=== PATIENT | female | born 1960 | race American Indian/Alaskan Native ===

== ENCOUNTER 2017-12-24 07:43 | Day surgery (SDC) | payer BC ==
[2017-12-24] MEDS ORDERED: Lactated Ringer's 1,000 ML IV ONE (09:00)
[2017-12-24] MEDS ORDERED: Propofol 10 mg/ml Inj (20 ML) ONE (09:00)
--- NOTE | 2017-12-24 09:00 | CP.SDSHP ---
Same Day Surgery H & P - History Proposed Procedure: screening colonoscopy Pre-Op Diagnosis: screening for colon cancer - Previous Medical/Surgical History Cardiac: Hypertension Pulmonary: Other (RUBÉN) Endocrine/Metabolic: Diabetes, Obesity Previous Surgical History: x 1 - Allergies Allergies: Allergies No Known Allergies Allergy (Verified 12/24/17 08:16) - Physical Exam General Appearance: Morbidly obese Vital Signs: Vital Signs 12/24/17 08:05 Temperature 97.9 F Pulse Rate 80 Respiratory 20 Rate Blood Pressure 160/91 H O2 Sat by Pulse 98 Oximetry Mental Status: Alert & Oriented x3 Neuro: WNL Heart: WNL Lungs: WNL GI: WNL - Impression Impression: screening for colon cancer Pt. Evaluated Today:Candidate for Anesthesia & Procedure: Yes - Date & Time Date: 12/24/17 Time: 09:00 Short Stay Discharge - Short Stay Discharge Admitting Diagnosis/Reason for Visit: MORBID OBESITY, ENCOUNTER FOR SCREENING, TYPE2 MISSY Disposition: HOME/ ROUTINE
[2017-12-24 09:56] VITALS: TEMP 97; O2SAT 100
[2017-12-24 10:02] VITALS: RESP 18
[2017-12-24 12:43] VITALS: BP 120/84; PULSE 76
== END 2017-12-24 11:05 | disposition home or self-care (01) ==
LOC: C.ENDO 07:43
PROVIDERS: ATTEND Internal Medicine Gastroenterology
DX: Z12.11 Encounter for screening for malignant neoplasm of colon (principal); E66.01 Morbid (severe) obesity due to excess calories; E11.65 Type 2 diabetes mellitus with hyperglycemia; E11.9 Type 2 diabetes mellitus without complications; E66.9 Obesity, unspecified; G47.33 Obstructive sleep apnea (adult) (pediatric); I10 Essential (primary) hypertension; K57.30 Diverticulosis of large intestine without perforation or abscess without bleeding; K64.1 Second degree hemorrhoids; Z68.43 Body mass index [BMI] 50.0-59.9, adult
CPT/HCPCS: 45378; 82948; J2001; J2704; J7120

== ENCOUNTER 2018-01-14 18:00 | Inpatient (IN) | payer BC ==
[2018-01-14 19:36] LABS: BASO # 0.1 K/uL (0.0-0.2); BASO % 1.1 % (0.0-2.0); EOS # 0.2 K/uL (0.0-0.7); EOS % 2.3 % (0.0-4.0); HEMOGLOBIN 14.1 g/dL (11.0-16.0); LYMPH # 2.2 K/uL (1.0-4.3); LYMPH % 23.3 % (20.0-40.0); MEAN CELL VOLUME 81.5 fL (81.0-99.0); MEAN CORPUSCULAR HEMOGLOBIN 27.3 pg (27.0-31.0); MEAN CORPUSCULAR HGB CONC 33.5 g/dL (33.0-37.0); MEAN PLATELET VOLUME 11.2 fL (7.2-11.7); MONO # 0.9 K/uL (0.0-0.8); MONO % 9.4 % (0.0-10.0); NEUT # 6.1 K/uL (1.8-7.0); NEUT % 63.9 % (50.0-75.0); NRBC % 0.3 % (0.0-2.0); RBC 5.18 Mil/uL (3.80-5.20); RED CELL DISTRIBUTION WIDTH 16.4 % (11.5-14.5); WHITE BLOOD COUNT 9.6 K/uL (4.8-10.8)
[2018-01-14 19:54] LABS: ALB/GLOB RATIO 0.9 (1.0-2.1); ALBUMIN 3.9 g/dL (3.5-5.0); GFR AFRICAN-AMERICAN > 60; GFR NON-AFRICAN AMERICAN > 60
[2018-01-14 19:57] LABS: ALT/SGPT 7 U/L (9-52); AST/SGOT 21 U/L (14-36); BLOOD UREA NITROGEN 11 mg/dL (7-17)
[2018-01-14 20:06] LABS: TROPONIN I 0.022 ng/mL (0.00-0.120)
--- NOTE | 2018-01-14 20:10 | C.PDOC ---
History Of Present Illness 57yo female, with history of hypertension, diabetes, sleep apnea (non-complaint with CPAP), presents to ED for evaluation of worsening dyspnea and chest pain at night while laying, for the past 2-3 weeks. Patient was seen and evaluated by her financial aids officer Dr. Pendleton, who advised her to come to the ER for further evaluation. She denies any fever, chills, and offers no other medical complaints. Time Seen by Provider: 01/14/18 19:20 Chief Complaint (Nursing): Shortness Of Breath History Per: Patient History/Exam Limitations: no limitations Onset/Duration Of Symptoms: Days, Persistent Current Symptoms Are (Timing): Still Present Past Medical History Reviewed: Historical Data, Nursing Documentation, Vital Signs Vital Signs: Last Vital Signs Temp 99 F 01/14/18 18:09 Pulse 90 01/14/18 23:48 Resp 20 01/14/18 23:48 BP 174/95 H 01/14/18 23:53 Pulse Ox 96 01/14/18 23:48 - Medical History PMH: Diabetes, HTN Denies: Chronic Kidney Disease Surgical History: No Surg Hx Family History: States: Unknown Family Hx - Social History Hx Tobacco Use: No Hx Alcohol Use: No Hx Substance Use: No - Immunization History Hx Tetanus Toxoid Vaccination: No Hx Influenza Vaccination: Yes Hx Pneumococcal Vaccination: No Review Of Systems Except As Marked, All Systems Reviewed And Found Negative. Constitutional: Negative for: Fever, Chills, Weakness, Malaise Eyes: Negative for: Pain, Vision Change, Eyelid Inflammation ENT: Negative for: Ear Pain, Ear Discharge, Nose Congestion, Mouth Pain Cardiovascular: Positive for: Chest Pain (worse at night), Orthopnea, Paroxysmal Noc. Dyspnea. Negative for: Palpitations, Edema, Light Headedness Respiratory: Positive for: Shortness of Breath (worse at night). Negative for: Hemoptysis, SOB with Excertion, Wheezing Gastrointestinal: Negative for: Nausea, Vomiting, Abdominal Pain, Constipation, Melena Genitourinary: Negative for: Dysuria, Frequency, Hematuria, Vaginal Discharge Musculoskeletal: Negative for: Neck Pain, Shoulder Pain, Back Pain, Hand Pain Skin: Negative for: Rash Neurological: Negative for: Weakness, Numbness Psych: Negative for: Anxiety, Depression, Psychosis, Suicidal ideation Physical Exam - Physical Exam Appears: Non-toxic, No Acute Distress Skin: Normal Color, Warm, Dry Head: Atraumatic, Normacephalic Eye(s): bilateral: Normal Inspection, PERRL Ear(s): Bilateral: Normal Nose: Normal, No Epistaxis Oral Mucosa: Moist Tongue: Normal Appearing Lips: Normal Appearing Teeth: Normal Dentition Gingiva: Normal Appearing Neck: Normal ROM, Supple Chest: Symmetrical, No Tenderness Cardiovascular: Rhythm Regular Respiratory: Normal Breath Sounds Gastrointestinal/Abdominal: Normal Exam, Soft, No Tenderness Back: No Normal Inspection, No CVA Tenderness, No Decreased ROM, No Muscle Spasm Extremity: Normal ROM Extremity: Bilateral: Atraumatic Neurological/Psych: Oriented x3, Normal Speech, Normal Cognition, Normal Motor, Normal Sensation Gait: Steady ED Course And Treatment - Laboratory Results Result Diagrams: 01/14/18 19:33 01/14/18 19:33 Urine POC: Negative ECG: Interpreted By Me, Viewed By Me ECG Rhythm: Sinus Rhythm Interpretation Of ECG: RI: 176. QRS: 102. QT: 378. ATC: 454 Rate From EC O2 Sat by Pulse Oximetry: 96 (RA) Pulse Ox Interpretation: Normal Medical Decision Making Medical Decision Making: Impression: Worsening dyspnea, chest pain Plan: -- Labs -- EKG -- CXR -- Continuous cardiac monitoring Time: 2099 Labs reviewed, Troponin and BNP within normal limits. CXR with no acute findings. Patient given ASA 325 mg PO. Time: [address] Buckner, hospitalist fishery division chief who declined case and recommended medicine fishery division chief to be contacted,. Case discussed with Dr. Brittanie Parr, medicine fishery division chief, who accepts patient for admission. Dr. Pendleton placed on cardiology consult. Time: 2138 Dr. Pendleton called back, reiterated he requested hospitalist for admission, hospitalist informed and now accepted the case. Disposition - Disposition Disposition: HOSPITALIZED Disposition Time: 00:32 Condition: FAIR - Clinical Impression Clinical Impression: Respiratory distress, Shortness of breath, Hypertension, Diabetes - Scribe Statement The provider has reviewed the documentation as recorded by the Scribe (Theresa Mei) Provider Attestation: All medical record entries made by the Scribe were at my direction and personally dictated by me. I have reviewed the chart and agree that the record accurately reflects my personal performance of the history, physical exam, medical decision making, and the department course for this patient. I have also personally directed, reviewed, and agree with the discharge instructions and disposition.
--- NOTE | 2018-01-14 22:21 | CP.PCM.HP ---
Addendum entered and electronically signed by Albert Keating, DO 01/15/18 02:13: Was told by veterinarian epidemiologist that the contrast did not adequately highlight the chest arteries most likely 2/2 to body habitus Evaporative Cooler Installer is recommending that she receive more contrast than is typically given 2/2 to BMI of 58 will pass on to day team to re-do study tomorrow (01/15) Original Note: <Albert Keating - Last Filed: 01/14/18 22:28> History of Present Illness - History of Present Illness History of Present Illness: CC: SOB and chest pain at Dr. Pendleton Office PMD: Francisco J Parr Pulm: Daron Cardio: Helder FULL CODE This patient is a 57yo F w/ a PMhx of RUBÉN, HTN, DM controlled not on insulin, HLD, super obesity, who is coming to the hospital for progressive shortness of breath, leg swelling, decreased exercise tolerance, and chest pain that started today at doctor pendleton office. She states the chest pain is intermittent, has left already, and was associated with shortness of breath which made her nervous. She is non compliant with CPAP at night; has had it for a year and has only used it twice. She is a former cigarette smoker, and has stopped for many years now. She denies illicit drug use. She sleeps with 1-2 pillows, rolled up under her. states that he gets woken up with her breathing and that she will stop breathing in her sleep and often wakes up to catch her breath. As per Dr. Pendleton; patient has recent cath which is normal without blockages; she has mitral regurgitation which could be a component of her SOB. He also wanted vascular studies of b/l lower extremities, as well as D-Dimer and if D Dimer is positive to get CTA chest. 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, walks without assistance but can only walk 1/2 block before getting short of breath, former smoker not smoked for 30 years, social EtOH, no illicit drugs Present on Admission - Present on Admission Any Indicators Present on Admission: No History of DVT/PE: No History of Uncontrolled Diabetes: Yes Urinary Catheter: No Decubitus Ulcer Present: No Past Patient History - Past Medical History & Family History Past Medical History?: Yes - Past Social History Smoking Status: Never Smoked - CARDIAC Hx Hypertension: Yes - PULMONARY Hx Respiratory Disorders: No - NEUROLOGICAL Hx Neurological Disorder: No - HEENT Hx HEENT Problems: Yes Other/Comment: WEARS GLASSES - RENAL Hx Chronic Kidney Disease: No - ENDOCRINE/METABOLIC Hx Endocrine Disorders: Yes Hx Diabetes Mellitus Type 2: Yes - HEMATOLOGICAL/ONCOLOGICAL Hx Blood Disorders: No - INTEGUMENTARY Hx Dermatological Problems: No - MUSCULOSKELETAL/RHEUMATOLOGICAL Hx Musculoskeletal Disorders: Yes Hx Osteoarthritis: Yes - GASTROINTESTINAL Hx Gastrointestinal Disorders: No - GENITOURINARY/GYNECOLOGICAL Hx Genitourinary Disorders: No - PSYCHIATRIC Hx Substance Use: No - SURGICAL HISTORY Hx Surgeries: Yes Hx Section: Yes (X1) - ANESTHESIA Hx Anesthesia: No Hx Anesthesia Reactions: No Meds Allergies/Adverse Reactions: Allergies Allergy/AdvReac Type Severity Reaction Status Date / Time shellfish derived Allergy Severe ANAPHYLAXIS Verified 01/14/18 18:15 Physical Exam - Constitutional Appears: Well, Non-toxic Additional comments: diaphoretic nervous - Eye Exam Eye Exam: EOMI, Normal appearance, PERRL. absent: Scleral icterus Pupil Exam: PERRL - ENT Exam ENT Exam: Mucous Membranes Moist - Respiratory Exam Respiratory Exam: Clear to Auscultation Bilateral, NORMAL BREATHING PATTERN. absent: Rales, Rhonchi, Wheezes - Cardiovascular Exam Cardiovascular Exam: REGULAR RHYTHM, +S1, +S2 - GI/Abdominal Exam GI & Abdominal Exam: Normal Bowel Sounds, Soft. absent: Tenderness (extremely obese abdomen very thick neck) - Extremities Exam Extremities exam: Positive for: normal inspection (large legs). Negative for: calf tenderness, pedal edema, tenderness - Back Exam Back exam: NORMAL INSPECTION. absent: CVA tenderness (L), CVA tenderness (R) - Neurological Exam Neurological exam: Alert, CN II-XII Intact, Oriented x3 - Psychiatric Exam Psychiatric exam: Anxious, Normal Affect - Skin Skin Exam: Warm Results - Vital Signs Recent Vital Signs: Last Vital Signs Temp 99 F 01/14/18 18:09 Pulse 82 01/14/18 21:26 Resp 20 01/14/18 21:26 BP 102/77 01/14/18 21:26 Pulse Ox 96 01/14/18 21:39 - Labs Result Diagrams: 01/14/18 19:33 01/14/18 19:33 Labs: Laboratory Results - last 24 hr 01/14/18 01/14/18 01/14/18 18:13 19:33 19:33 WBC 9.6 RBC 5.18 Hgb 14.1 Hct 42.2 MCV 81.5 MCH 27.3 MCHC 33.5 RDW 16.4 H Plt Count 177 MPV 11.2 Neut % (Auto) 63.9 Lymph % (Auto) 23.3 Atlantic % (Auto) 9.4 Eos % (Auto) 2.3 Baso % (Auto) 1.1 Neut # (Auto) 6.1 Lymph # (Auto) 2.2 Atlantic # (Auto) 0.9 H Eos # (Auto) 0.2 Baso # (Auto) 0.1 Differential Comment Sodium 143 Potassium 4.4 Chloride 104 Carbon Dioxide 30 Anion Gap 13 BUN 11 Creatinine 0.6 L Est GFR ( Amer) > 60 Est GFR (Non-Af Amer) > 60 POC Glucose (mg/dL) 160 H Random Glucose 170 H Calcium 9.0 Total Bilirubin 0.7 AST 21 ALT 7 L D Alkaline Phosphatase 83 Troponin I NT-Pro-B Natriuret Pep Total Protein 8.1 Albumin 3.9 Globulin 4.2 H Albumin/Globulin Ratio 0.9 L 01/14/18 19:33 WBC RBC Hgb Hct MCV MCH MCHC RDW Plt Count MPV Neut % (Auto) Lymph % (Auto) Atlantic % (Auto) Eos % (Auto) Baso % (Auto) Neut # (Auto) Lymph # (Auto) Atlantic # (Auto) Eos # (Auto) Baso # (Auto) Differential Comment Sodium Potassium Chloride Carbon Dioxide Anion Gap BUN Creatinine Est GFR ( Amer) Est GFR (Non-Af Amer) POC Glucose (mg/dL) Random Glucose Calcium Total Bilirubin AST ALT Alkaline Phosphatase Troponin I 0.0220 NT-Pro-B Natriuret Pep 235 Total Protein Albumin Globulin Albumin/Globulin Ratio Assessment & Plan - Assessment and Plan (Free Text) Assessment: 57yo F sent from cardio clinic for evaluation of chest pain and shortness of breath Chest Pain -GLYNN Q6H; initial negative -BNP WNL -Aspirin, Statin ordered -Cardiology: Dr Pendleton; appreciate recs -echo ordered, f/u recs -telemetry SOB -likely 2/2 to super obesity -CPAP at night and encouraged -weight loss encouraged -Dr. Neri; pulmonology for Dr. pendleton; thank you for your help -as per Dr. Pendleton, if D Dimer elevated will get CTA PE Protocol -f/u b/l lower extremity US Hx of HTn -c/w ramipril -telemetry Hx of DM -c/w home meds, metformin, januvia, glimiperide -hypoglycemia protocol Hx of HLD -Statin high dose 40mg HS Hx of RUBÉN -CPAP encouraged Super Obesity -counseling; diet and exercise encouraged Prophylaxis -GI prophylaxis not indicated -Lovenox 40mg SC Discussed and seen with Dr. Buckner Discussed with Dr. Helder Keating PGY2 Decision To Admit - Pt Status Changed To: Hospital Disposition Of: Observation - . Bed Request Type: Telemetry Admitting Physician: Jonas Buckner <Jonas Buckner - Last Filed: 01/15/18 07:53> Results - Vital Signs Recent Vital Signs: Last Vital Signs Temp 98 F 01/15/18 05:12 Pulse 82 01/15/18 05:00 Resp 17 01/15/18 05:00 BP 146/69 01/15/18 04:35 Pulse Ox 98 01/15/18 05:00 - Labs Result Diagrams: 01/15/18 02:57 01/15/18 02:57 Labs: Laboratory Results - last 24 hr 01/14/18 01/14/18 01/14/18 18:13 19:33 19:33 WBC 9.6 RBC 5.18 Hgb 14.1 Hct 42.2 MCV 81.5 MCH 27.3 MCHC 33.5 RDW 16.4 H Plt Count 177 MPV 11.2 Neut % (Auto) 63.9 Lymph % (Auto) 23.3 Atlantic % (Auto) 9.4 Eos % (Auto) 2.3 Baso % (Auto) 1.1 Neut # (Auto) 6.1 Lymph # (Auto) 2.2 Atlantic # (Auto) 0.9 H Eos # (Auto) 0.2 Baso # (Auto) 0.1 Differential Comment D-Dimer, Quantitative Sodium 143 Potassium 4.4 Chloride 104 Carbon Dioxide 30 Anion Gap 13 BUN 11 Creatinine 0.6 L Est GFR ( Amer) > 60 Est GFR (Non-Af Amer) > 60 POC Glucose (mg/dL) 160 H Random Glucose 170 H Hemoglobin A1c Calcium 9.0 Total Bilirubin 0.7 AST 21 ALT 7 L D Alkaline Phosphatase 83 Total Creatine Kinase CK-MB (Mass) Troponin I NT-Pro-B Natriuret Pep Total Protein 8.1 Albumin 3.9 Globulin 4.2 H Albumin/Globulin Ratio 0.9 L Triglycerides Cholesterol LDL Cholesterol Direct HDL Cholesterol Free T4 TSH 3rd Generation 01/14/18 01/14/18 01/14/18 19:33 22:30 22:58 WBC RBC Hgb Hct MCV MCH MCHC RDW Plt Count MPV Neut % (Auto) Lymph % (Auto) Atlantic % (Auto) Eos % (Auto) Baso % (Auto) Neut # (Auto) Lymph # (Auto) Atlantic # (Auto) Eos # (Auto) Baso # (Auto) Differential Comment D-Dimer, Quantitative 348 H Sodium Potassium Chloride Carbon Dioxide Anion Gap BUN Creatinine Est GFR ( Amer) Est GFR (Non-Af Amer) POC Glucose (mg/dL) 214 H Random Glucose Hemoglobin A1c Calcium Total Bilirubin AST ALT Alkaline Phosphatase Total Creatine Kinase CK-MB (Mass) Troponin I 0.0220 NT-Pro-B Natriuret Pep 235 Total Protein Albumin Globulin Albumin/Globulin Ratio Triglycerides Cholesterol LDL Cholesterol Direct HDL Cholesterol Free T4 TSH 3rd Generation 01/15/18 01/15/18 01/15/18 02:57 02:57 02:57 WBC RBC Hgb Hct MCV MCH MCHC RDW Plt Count MPV Neut % (Auto) Lymph % (Auto) Atlantic % (Auto) Eos % (Auto) Baso % (Auto) Neut # (Auto) Lymph # (Auto) Atlantic # (Auto) Eos # (Auto) Baso # (Auto) Differential Comment D-Dimer, Quantitative Sodium 142 Potassium 3.9 Chloride 105 Carbon Dioxide 28 Anion Gap 13 BUN 11 Creatinine 0.6 L Est GFR ( Amer) > 60 Est GFR (Non-Af Amer) > 60 POC Glucose (mg/dL) Random Glucose 178 H Hemoglobin A1c 7.8 H Calcium 8.8 Total Bilirubin 0.7 AST 15 ALT 15 Alkaline Phosphatase 69 Total Creatine Kinase CK-MB (Mass) Troponin I NT-Pro-B Natriuret Pep Total Protein 7.1 Albumin 3.5 Globulin 3.6 Albumin/Globulin Ratio 1.0 Triglycerides 82 D Cholesterol 129 LDL Cholesterol Direct 67 HDL Cholesterol 37 Free T4 1.37 TSH 3rd Generation 0.97 01/15/18 01/15/18 01/15/18 02:57 02:57 07:24 WBC 7.8 RBC 4.80 Hgb 13.1 Hct 38.7 MCV 80.8 L MCH 27.3 MCHC 33.8 RDW 15.9 H Plt Count 134 MPV 10.7 Neut % (Auto) 63.4 Lymph % (Auto) 22.7 Atlantic % (Auto) 9.8 Eos % (Auto) 3.0 Baso % (Auto) 1.1 Neut # (Auto) 5.0 Lymph # (Auto) 1.8 Atlantic # (Auto) 0.8 Eos # (Auto) 0.2 Baso # (Auto) 0.1 Differential Comment D-Dimer, Quantitative Sodium Potassium Chloride Carbon Dioxide Anion Gap BUN Creatinine Est GFR ( Amer) Est GFR (Non-Af Amer) POC Glucose (mg/dL) 175 H Random Glucose Hemoglobin A1c Calcium Total Bilirubin AST ALT Alkaline Phosphatase Total Creatine Kinase 37 CK-MB (Mass) 1.36 Troponin I 0.0200 NT-Pro-B Natriuret Pep Total Protein Albumin Globulin Albumin/Globulin Ratio Triglycerides Cholesterol LDL Cholesterol Direct HDL Cholesterol Free T4 TSH 3rd Generation Attending/Attestation - Attestation I have personally seen and examined this patient.: Yes I have fully participated in the care of the patient.: Yes I have reviewed all pertinent clinical information: Yes Notes (Text): Assessment Chronic sob some worsening in last 2 months, negative cath as per the cardiology , Non compliance with prior diagnosis of obstructive sleep apnea, with positive symptoms Morbidly obese H/o htn, dm Plan Since elevated ddimer, will do CTA, pulm consult, cardiology consult, hold metformin due to iv contrast.
[2018-01-14] MEDS ORDERED: Dextrose 50% SYRINGE Inj (50 ml) IV PRN (22:38)
[2018-01-14] MEDS ORDERED: Glucagon Recombinant 1 mg Inj IM PRN (22:38)
[2018-01-14] MEDS ORDERED: Iodixanol 320 MG/ML 100 ML BOTTLE IV ONE (23:02)
[2018-01-15 03:01] LABS: BASO # 0.1 K/uL (0.0-0.2); BASO % 1.1 % (0.0-2.0); EOS # 0.2 K/uL (0.0-0.7); HEMOGLOBIN 13.1 g/dL (11.0-16.0); LYMPH # 1.8 K/uL (1.0-4.3); LYMPH % 22.7 % (20.0-40.0); MEAN CELL VOLUME 80.8 fL (81.0-99.0); MEAN CORPUSCULAR HEMOGLOBIN 27.3 pg (27.0-31.0); MEAN CORPUSCULAR HGB CONC 33.8 g/dL (33.0-37.0); MEAN PLATELET VOLUME 10.7 fL (7.2-11.7); MONO # 0.8 K/uL (0.0-0.8); MONO % 9.8 % (0.0-10.0); NEUT % 63.4 % (50.0-75.0); NRBC % 0.1 % (0.0-2.0); RBC 4.8 Mil/uL (3.80-5.20); RED CELL DISTRIBUTION WIDTH 15.9 % (11.5-14.5); WHITE BLOOD COUNT 7.8 K/uL (4.8-10.8)
[2018-01-15 03:18] LABS: ALBUMIN 3.5 g/dL (3.5-5.0); ALT/SGPT 15 U/L (9-52); AST/SGOT 15 U/L (14-36); BLOOD UREA NITROGEN 11 mg/dL (7-17); CALCIUM 8.8 mg/dl (8.6-10.4); GFR AFRICAN-AMERICAN > 60; GFR NON-AFRICAN AMERICAN > 60; HDL CHOLESTEROL 37 mg/dL (30-70)
--- NOTE | 2018-01-15 03:19 | CT ---
EXAM: CT Chest With Intravenous Contrast EXAM DATE/TIME: 01/14/2018 10:54 PM CLINICAL HISTORY: 57 years old, female; Pain; Chest pain; Additional info: SOB TECHNIQUE: Axial computed tomography images of the chest with intravenous contrast. All CT scans at this facility use one or more dose reduction techniques, viz.: automated exposure control; ma/kV adjustment per patient size (including targeted exams where dose is matched to indication; i.e. head); or iterative reconstruction technique. Coronal and sagittal reformatted images were created and reviewed. CONTRAST: 100 mL of [id number] administered intravenously. COMPARISON: No relevant prior studies available. FINDINGS: Pulmonary embolism cannot be excluded as there is no contrast within the pulmonary arterial system for which to evaluate for a filling defect. No aortic aneurysm. No pleural or pericardial effussions. No pulmonary consolidation. There is a lobulated left renal cyst incompletely imaged. The upper abdomen is otherwise unremarkable. Osteophyte formation in the spine. IMPRESSION: No acute findings however nondiagnostic study for pulmonary emboli due to the lack of contrast within the pulmonary arterial system.
[2018-01-15 03:25] LABS: CK-MB 1.36 ng/mL (0.0-3.38); LDL CHOLESTEROL 67 mg/dL (0-129); TROPONIN I 0.02 ng/mL (0.00-0.120)
[2018-01-15] MEDS: Albuterol-Ipratrop 3 mg / 0.5 (3 ml) UD INH SCH ×3 (08:30→20:51)
--- NOTE | 2018-01-15 08:30 | RAD ---
PROCEDURE: CHEST RADIOGRAPH, 1 VIEW HISTORY: chest pain COMPARISON: None available. FINDINGS: LUNGS: Clear. PLEURA: No pneumothorax or pleural fluid seen. CARDIOVASCULAR: Normal. OSSEOUS STRUCTURES: No significant abnormalities. VISUALIZED UPPER ABDOMEN: Normal. OTHER FINDINGS: None. IMPRESSION: No active disease.
[2018-01-15] MEDS: Enoxaparin 40 mg Syringe SC SCH (09:07)
[2018-01-15 09:12] LABS: CK-MB 1.2 ng/mL (0.0-3.38); TROPONIN I 0.024 ng/mL (0.00-0.120)
[2018-01-15] MEDS ORDERED: Perflutren Lipid Microsphere 1.5 ML SUS IV ONE (10:50)
--- NOTE | 2018-01-15 11:23 | CP.PCM.PN ---
<ArielJaymie - Last Filed: 01/15/18 14:12> Subjective - Date & Time of Evaluation Date of Evaluation: 01/15/18 Time of Evaluation: 07:30 - Subjective Subjective: Patient seen and examined at bedside. Patient resting comfortably in bed with no new complaints at this time. She states she is still feeling a little short of breath although it has gotten a little better. Patient says she is not having any chest pain, palpitations, calf pain, lower extremity swelling, dizziness, or headaches. Patient says she is a little constipated and asking for a stool softener. Patient is wonder when she can go upstairs to a regular room because she does not like using the bedside commode. She also denies fever , chills, abdominal pain, N&V, and diarrhea. Objective - Vital Signs/Intake and Output Vital Signs (last 24 hours): Temp Pulse Resp BP Pulse Ox 98.4 F 82 14 158/74 H 98 01/15/18 08:00 01/15/18 08:00 01/15/18 08:00 01/15/18 09:07 01/15/18 08:00 Intake and Output: 01/15/18 01/15/18 06:59 18:59 Intake Total 50 200 Output Total 300 Balance 50 -100 - Medications Medications: Current Medications Acetaminophen (Tylenol 325mg Tab) 650 mg PO Q6 PRN PRN Reason: Fever >100.4 F Albuterol/Ipratropium (Duoneb 3 Mg/0.5 Mg (3 Ml) Ud) 3 ml INH RQ6 [facility] Aspirin (Aspirin Chewable) 81 mg PO DAILY [facility] Last Admin: 01/15/18 09:06 Dose: 81 mg Dextrose (Glutose 15) 0 gm PO ONCE PRN; Protocol PRN Reason: Hypoglycemia Protocol Dextrose (Dextrose 50% Inj) 0 ml IV STAT PRN; Protocol PRN Reason: Hypoglycemia Protocol Enalapril Maleate (Vasotec) 5 mg PO BID [facility] Last Admin: 01/15/18 09:07 Dose: 5 mg Enoxaparin Sodium (Lovenox) 40 mg SC DAILY [facility] Last Admin: 01/15/18 09:07 Dose: 40 mg Glimepiride (Amaryl) 4 mg PO BID [facility] Last Admin: 01/15/18 09:06 Dose: 4 mg Glucagon (Glucagen Diagnostic Kit) 0 mg IM STAT PRN; Protocol PRN Reason: Hypoglycemia Protocol Dextrose (Dextrose 5% In Water 1000 Ml) 1,000 mls @ 0 mls/hr IV .Q0M PRN; Protocol; Per Protocol PRN Reason: Hypoglycemia Protocol Metformin HCl (Glucophage) 1,000 mg PO BID [facility] Ondansetron HCl (Zofran Inj) 4 mg IVP Q6 PRN PRN Reason: Nausea/Vomiting Rosuvastatin Calcium (Crestor) 40 mg PO HS [facility] Last Admin: 01/14/18 23:41 Dose: 40 mg Sitagliptin Phosphate (Januvia) 100 mg PO DAILY [facility] Last Admin: 01/15/18 09:07 Dose: 100 mg - Labs Labs: 01/15/18 02:57 01/15/18 02:57 - Constitutional Appears: Non-toxic, No Acute Distress, Other (Obese body habitus) - Head Exam Head Exam: ATRAUMATIC, NORMAL INSPECTION, NORMOCEPHALIC - Eye Exam Eye Exam: EOMI, Normal appearance, PERRL - ENT Exam ENT Exam: Mucous Membranes Moist - Neck Exam Neck Exam: absent: Tenderness - Respiratory Exam Respiratory Exam: Rhonchi (left upper and middle ausculatory zones with expiration), Wheezes (left upper and middle ausculatory zones with expiration), NORMAL BREATHING PATTERN. absent: Accessory Muscle Use, Rales, Respiratory Distress - Cardiovascular Exam Cardiovascular Exam: RRR, +S1, +S2. absent: Bradycardia, Tachycardia - GI/Abdominal Exam GI & Abdominal Exam: Soft, Normal Bowel Sounds. absent: Tenderness Additional comments: obese abdomen - Extremities Exam Extremities Exam: Normal Capillary Refill. absent: Calf Tenderness, Pedal Edema - Back Exam Back Exam: absent: rash noted - Neurological Exam Neurological Exam: Alert, Awake, Oriented x3 - Psychiatric Exam Psychiatric exam: Normal Affect, Normal Mood - Skin Skin Exam: Dry, Intact, Normal Color, Warm Assessment and Plan - Assessment and Plan (Free Text) Plan: Shortness of Breath * D dimer slightly elevated at 348 * Pulmonology consult (Dr. Neri) - help appreciated * CTA Chest: poor study for PE due to inadequate contrast in the pulmonary vasculature * VQ scan: low probability VQ scan * f/u venous dopplers of the lower extremities Chest Pain - resolved * Cardiology consult (Dr. Pendleton) - help appreciated * Monitor on telemetry * GLYNN negative x3 * BNP WNL * f/u echo * Lipid Panel: Trig 82, Chol 129, LDL 67, HDL 37 * TSH/Free T4 WNL * ASA 81 mg * Crestor 40 mg Hx of HTn * Continue ramipril Hx of DM * Continue home meds, metformin, januvia, glimiperide * Hypoglycemia protocol * Accuchecks ACHS * HbA1c 7.8 Hx of HLD * Crestor 40mg HS Hx of RUBÉN * CPAP encouraged Super Obesity * counseling; diet and exercise encouraged Prophylaxis * GI prophylaxis not indicated * Lovenox 40mg SC <Minor Parr - Last Filed: 01/15/18 20:25> Objective - Vital Signs/Intake and Output Vital Signs (last 24 hours): Temp Pulse Resp BP Pulse Ox 98.2 F 96 H 18 178/81 H 98 01/15/18 16:00 01/15/18 18:00 01/15/18 18:00 01/15/18 17:27 01/15/18 16:00 Intake and Output: 01/15/18 01/16/18 18:59 06:59 Intake Total 450 Output Total 300 Balance 150 - Medications Medications: Current Medications Acetaminophen (Tylenol 325mg Tab) 650 mg PO Q6 PRN PRN Reason: Fever >100.4 F Albuterol/Ipratropium (Duoneb 3 Mg/0.5 Mg (3 Ml) Ud) 3 ml INH RQ6 [facility] Last Admin: 01/15/18 17:28 Dose: Not Given Aspirin (Aspirin Chewable) 81 mg PO DAILY [facility] Last Admin: 01/15/18 09:06 Dose: 81 mg Dextrose (Glutose 15) 0 gm PO ONCE PRN; Protocol PRN Reason: Hypoglycemia Protocol Dextrose (Dextrose 50% Inj) 0 ml IV STAT PRN; Protocol PRN Reason: Hypoglycemia Protocol Docusate Sodium (Colace) 100 mg PO BID [facility] Last Admin: 01/15/18 17:29 Dose: 100 mg Enalapril Maleate (Vasotec) 5 mg PO BID [facility] Last Admin: 01/15/18 17:27 Dose: 5 mg Enoxaparin Sodium (Lovenox) 40 mg SC DAILY [facility] Last Admin: 01/15/18 09:07 Dose: 40 mg Glimepiride (Amaryl) 4 mg PO BID [facility] Last Admin: 01/15/18 17:27 Dose: 4 mg Glucagon (Glucagen Diagnostic Kit) 0 mg IM STAT PRN; Protocol PRN Reason: Hypoglycemia Protocol Dextrose (Dextrose 5% In Water 1000 Ml) 1,000 mls @ 0 mls/hr IV .Q0M PRN; Protocol; Per Protocol PRN Reason: Hypoglycemia Protocol Insulin Human Regular (Novolin R) 0 unit SC ACHS JS PRN Reason: Protocol Last Admin: 01/15/18 16:33 Dose: 4 unit Metformin HCl (Glucophage) 1,000 mg PO BID [facility] Ondansetron HCl (Zofran Inj) 4 mg IVP Q6 PRN PRN Reason: Nausea/Vomiting Rosuvastatin Calcium (Crestor) 40 mg PO HS [facility] Last Admin: 01/14/18 23:41 Dose: 40 mg Sitagliptin Phosphate (Januvia) 100 mg PO DAILY [facility] Last Admin: 01/15/18 09:07 Dose: 100 mg - Labs Labs: 01/15/18 02:57 01/15/18 02:57 Attending/Attestation - Attestation I have personally seen and examined this patient.: Yes I have fully participated in the care of the patient.: Yes I have reviewed all pertinent clinical information, including history, physical exam and plan: Yes Notes (Text): 01/15/18 20:21 Patient was seen and examined at 9 PM Exam, assessment and plan were gone over with the resident. Please note the following: Metformin is being held due to administration of Contrast for CT Angio Chest on [facility] 01/14/18 and this can be restarted on 01/17/18. Patient unaware of CPAP settings at home and dose not use it consistently due nausea from it. Suspect likely due to high setting leading to gastric inflation leading to the nausea. Spoke with Payroll Assistant Timo and set CPAP to 10 mm H20 and FiO2 of 30% and patient tolerated this during the day. V/Q low probability Venous Duplex without evidence of DVT of LE F/U Echo Patient stated that she has follow up with unspecified Bariatric Surgeon in late February 2018 to set up Gastric Sleave Surgery. Will discharge to home on morning 01/16/18. Minor Parr D.O.
--- NOTE | 2018-01-15 11:46 | CARD ---
APPROVED REPORT EKG Measurement Heart [id number] AR [id number] <Conclusion> Poor data quality, interpretation may be adversely affected Normal sinus rhythm Normal ECG
--- NOTE | 2018-01-15 12:03 | NM ---
COMPARISON: January 15, 2018. Single-view chest. January 15, 2018. CT thorax TECHNIQUE: 9.6 mCi technetium 99-m Xe-133 Gas. 4.1 mCI technetium 99-m MAA administered intravenously. FINDINGS: VENTILATION COMPONENT: Normal. PERFUSION COMPONENT: Heterogeneous distribution of radionuclide. No geographic, segmental, lobar abnormalities apparent on the present examination. IMPRESSION: Low probability ventilation perfusion scan for pulmonary embolism.
--- NOTE | 2018-01-15 12:05 | CP.PCM.CON ---
History of Present Illness - History of Present Illness History of Present Illness: reason for consultation: shortness of breath 57yo F w/ a PMhx of RUBÉN, HTN, DM controlled not on insulin, HLD, super obesity, who is coming to the hospital for progressive shortness of breath, leg swelling , decreased exercise tolerance, and chest pain that started today at doctor nish office. She is non compliant with CPAP at night; has had it for a year and has only used it twice. She sleeps with 1-2 pillows, rolled up under her. states that he gets woken up with her breathing and that she will stop breathing in her sleep and often wakes up to catch her breath. 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, walks without assistance but can only walk 1/2 block before getting short of breath, former smoker not smoked for 30 years, social EtOH, no illicit drugs Review of Systems - Review of Systems All systems: reviewed and no additional remarkable complaints except (Shortness of breath and chest pain) Past Patient History - Past Medical History & Family History Past Medical History?: Yes - Past Social History Smoking Status: Former Smoker - CARDIAC Hx Cardiac Disorders: Yes Hx Hypertension: Yes - PULMONARY Hx Respiratory Disorders: No - NEUROLOGICAL Hx Neurological Disorder: No - HEENT Hx HEENT Problems: Yes Other/Comment: WEARS GLASSES - RENAL Hx Chronic Kidney Disease: No - ENDOCRINE/METABOLIC Hx Endocrine Disorders: Yes Hx Diabetes Mellitus Type 2: Yes - HEMATOLOGICAL/ONCOLOGICAL Hx Blood Disorders: No - INTEGUMENTARY Hx Dermatological Problems: No - MUSCULOSKELETAL/RHEUMATOLOGICAL Hx Musculoskeletal Disorders: Yes Hx Falls: No Hx Osteoarthritis: Yes - GASTROINTESTINAL Hx Gastrointestinal Disorders: No - GENITOURINARY/GYNECOLOGICAL Hx Genitourinary Disorders: No - PSYCHIATRIC Hx Substance Use: No - SURGICAL HISTORY Hx Surgeries: Yes Hx Section: Yes (X1) - ANESTHESIA Hx Anesthesia: Yes Hx Anesthesia Reactions: No Hx Malignant Hyperthermia: No Has any member of the family had a problem w/ anesthesia?: No Meds Allergies/Adverse Reactions: Allergies Allergy/AdvReac Type Severity Reaction Status Date / Time shellfish derived Allergy Severe ANAPHYLAXIS Verified 01/14/18 18:15 - Medications Medications: Current Medications Acetaminophen (Tylenol 325mg Tab) 650 mg PO Q6 PRN PRN Reason: Fever >100.4 F Albuterol/Ipratropium (Duoneb 3 Mg/0.5 Mg (3 Ml) Ud) 3 ml INH RQ6 [facility] Aspirin (Aspirin Chewable) 81 mg PO DAILY [facility] Last Admin: 01/15/18 09:06 Dose: 81 mg Dextrose (Glutose 15) 0 gm PO ONCE PRN; Protocol PRN Reason: Hypoglycemia Protocol Dextrose (Dextrose 50% Inj) 0 ml IV STAT PRN; Protocol PRN Reason: Hypoglycemia Protocol Docusate Sodium (Colace) 100 mg PO BID [facility] Enalapril Maleate (Vasotec) 5 mg PO BID [facility] Last Admin: 01/15/18 09:07 Dose: 5 mg Enoxaparin Sodium (Lovenox) 40 mg SC DAILY [facility] Last Admin: 01/15/18 09:07 Dose: 40 mg Glimepiride (Amaryl) 4 mg PO BID [facility] Last Admin: 01/15/18 09:06 Dose: 4 mg Glucagon (Glucagen Diagnostic Kit) 0 mg IM STAT PRN; Protocol PRN Reason: Hypoglycemia Protocol Dextrose (Dextrose 5% In Water 1000 Ml) 1,000 mls @ 0 mls/hr IV .Q0M PRN; Protocol; Per Protocol PRN Reason: Hypoglycemia Protocol Metformin HCl (Glucophage) 1,000 mg PO BID [facility] Ondansetron HCl (Zofran Inj) 4 mg IVP Q6 PRN PRN Reason: Nausea/Vomiting Rosuvastatin Calcium (Crestor) 40 mg PO HS [facility] Last Admin: 01/14/18 23:41 Dose: 40 mg Sitagliptin Phosphate (Januvia) 100 mg PO DAILY [facility] Last Admin: 01/15/18 09:07 Dose: 100 mg Physical Exam - Head Exam Head Exam: ATRAUMATIC, NORMOCEPHALIC - Eye Exam Eye Exam: Normal appearance - ENT Exam ENT Exam: Mucous Membranes Moist - Neck Exam Neck exam: Positive for: Normal Inspection - Respiratory Exam Respiratory Exam: Clear to Auscultation Bilateral - Cardiovascular Exam Cardiovascular Exam: REGULAR RHYTHM - GI/Abdominal Exam GI & Abdominal Exam: Normal Bowel Sounds, Soft - Extremities Exam Extremities exam: Positive for: pedal edema Results - Vital Signs Recent Vital Signs: Last Vital Signs Temp 98.4 F 01/15/18 08:00 Pulse 82 01/15/18 08:00 Resp 14 01/15/18 08:00 BP 158/74 H 01/15/18 09:07 Pulse Ox 98 01/15/18 08:00 - Labs Result Diagrams: 01/15/18 02:57 01/15/18 02:57 Labs: Laboratory Results - last 24 hr 01/14/18 01/14/18 01/14/18 18:13 19:33 19:33 WBC 9.6 RBC 5.18 Hgb 14.1 Hct 42.2 MCV 81.5 MCH 27.3 MCHC 33.5 RDW 16.4 H Plt Count 177 MPV 11.2 Neut % (Auto) 63.9 Lymph % (Auto) 23.3 [place] % (Auto) 9.4 Eos % (Auto) 2.3 Baso % (Auto) 1.1 Neut # (Auto) 6.1 Lymph # (Auto) 2.2 [place] # (Auto) 0.9 H Eos # (Auto) 0.2 Baso # (Auto) 0.1 Differential Comment D-Dimer, Quantitative Sodium 143 Potassium 4.4 Chloride 104 Carbon Dioxide 30 Anion Gap 13 BUN 11 Creatinine 0.6 L Est GFR ( Amer) > 60 Est GFR (Non-Af Amer) > 60 POC Glucose (mg/dL) 160 H Random Glucose 170 H Hemoglobin A1c Calcium 9.0 Total Bilirubin 0.7 AST 21 ALT 7 L D Alkaline Phosphatase 83 Total Creatine Kinase CK-MB (Mass) Troponin I NT-Pro-B Natriuret Pep Total Protein 8.1 Albumin 3.9 Globulin 4.2 H Albumin/Globulin Ratio 0.9 L Triglycerides Cholesterol LDL Cholesterol Direct HDL Cholesterol Free T4 TSH 3rd Generation 01/14/18 01/14/18 01/14/18 19:33 22:30 22:58 WBC RBC Hgb Hct MCV MCH MCHC RDW Plt Count MPV Neut % (Auto) Lymph % (Auto) [place] % (Auto) Eos % (Auto) Baso % (Auto) Neut # (Auto) Lymph # (Auto) [place] # (Auto) Eos # (Auto) Baso # (Auto) Differential Comment D-Dimer, Quantitative 348 H Sodium Potassium Chloride Carbon Dioxide Anion Gap BUN Creatinine Est GFR ( Amer) Est GFR (Non-Af Amer) POC Glucose (mg/dL) 214 H Random Glucose Hemoglobin A1c Calcium Total Bilirubin AST ALT Alkaline Phosphatase Total Creatine Kinase CK-MB (Mass) Troponin I 0.0220 NT-Pro-B Natriuret Pep 235 Total Protein Albumin Globulin Albumin/Globulin Ratio Triglycerides Cholesterol LDL Cholesterol Direct HDL Cholesterol Free T4 TSH 3rd Generation 01/15/18 01/15/18 01/15/18 02:57 02:57 02:57 WBC RBC Hgb Hct MCV MCH MCHC RDW Plt Count MPV Neut % (Auto) Lymph % (Auto) [place] % (Auto) Eos % (Auto) Baso % (Auto) Neut # (Auto) Lymph # (Auto) [place] # (Auto) Eos # (Auto) Baso # (Auto) Differential Comment D-Dimer, Quantitative Sodium 142 Potassium 3.9 Chloride 105 Carbon Dioxide 28 Anion Gap 13 BUN 11 Creatinine 0.6 L Est GFR ( Amer) > 60 Est GFR (Non-Af Amer) > 60 POC Glucose (mg/dL) Random Glucose 178 H Hemoglobin A1c 7.8 H Calcium 8.8 Total Bilirubin 0.7 AST 15 ALT 15 Alkaline Phosphatase 69 Total Creatine Kinase CK-MB (Mass) Troponin I NT-Pro-B Natriuret Pep Total Protein 7.1 Albumin 3.5 Globulin 3.6 Albumin/Globulin Ratio 1.0 Triglycerides 82 D Cholesterol 129 LDL Cholesterol Direct 67 HDL Cholesterol 37 Free T4 1.37 TSH 3rd Generation 0.97 01/15/18 01/15/18 01/15/18 02:57 02:57 07:24 WBC 7.8 RBC 4.80 Hgb 13.1 Hct 38.7 MCV 80.8 L MCH 27.3 MCHC 33.8 RDW 15.9 H Plt Count 134 MPV 10.7 Neut % (Auto) 63.4 Lymph % (Auto) 22.7 [place] % (Auto) 9.8 Eos % (Auto) 3.0 Baso % (Auto) 1.1 Neut # (Auto) 5.0 Lymph # (Auto) 1.8 [place] # (Auto) 0.8 Eos # (Auto) 0.2 Baso # (Auto) 0.1 Differential Comment D-Dimer, Quantitative Sodium Potassium Chloride Carbon Dioxide Anion Gap BUN Creatinine Est GFR ( Amer) Est GFR (Non-Af Amer) POC Glucose (mg/dL) 175 H Random Glucose Hemoglobin A1c Calcium Total Bilirubin AST ALT Alkaline Phosphatase Total Creatine Kinase 37 CK-MB (Mass) 1.36 Troponin I 0.0200 NT-Pro-B Natriuret Pep Total Protein Albumin Globulin Albumin/Globulin Ratio Triglycerides Cholesterol LDL Cholesterol Direct HDL Cholesterol Free T4 TSH 3rd Generation 01/15/18 01/15/18 08:41 11:46 WBC RBC Hgb Hct MCV MCH MCHC RDW Plt Count MPV Neut % (Auto) Lymph % (Auto) [place] % (Auto) Eos % (Auto) Baso % (Auto) Neut # (Auto) Lymph # (Auto) [place] # (Auto) Eos # (Auto) Baso # (Auto) Differential Comment D-Dimer, Quantitative Sodium Potassium Chloride Carbon Dioxide Anion Gap BUN Creatinine Est GFR ( Amer) Est GFR (Non-Af Amer) POC Glucose (mg/dL) 171 H Random Glucose Hemoglobin A1c Calcium Total Bilirubin AST ALT Alkaline Phosphatase Total Creatine Kinase 29 L CK-MB (Mass) 1.20 Troponin I 0.0240 NT-Pro-B Natriuret Pep Total Protein Albumin Globulin Albumin/Globulin Ratio Triglycerides Cholesterol LDL Cholesterol Direct HDL Cholesterol Free T4 TSH 3rd Generation Assessment & Plan (1) RUBÉN (obstructive sleep apnea) Status: Acute Comment: patient noncompliant using CPAP at night. status post cardiac catheterization recntly with normal coronaries. Pro BNP within normal limits. Unlikely asthma/COPD. Echocardiogram to rule out pulmonary hypertension. Patient advised to use CPAP at night>. Slightly elevated d-dime and had VQ scan done (2) Shortness of breath Status: Acute
[2018-01-15] MEDS: (Novolin R) Insulin Human Regular 100 units/ml vial SC SCH ×2 (16:33→21:24)
--- NOTE | 2018-01-15 20:20 | CARD ---
APPROVED REPORT EXAM: Two-dimensional and M-mode echocardiogram with Doppler, color Doppler with contrast. Other Information Quality : GoodRhythm : INDICATION Dyspnea Chest Pain Echo Enhancing Agent Indication: LV FUNCTION,LVH Agent/Amount Used: Definity RISK FACTORS Hypertension Obesity Diabetes 2D DIMENSIONS IVSd1.0 (0.7-1.1cm)LVDd7.2 (3.9-5.9cm) PWd1.0 (0.7-1.1cm)LVDs6.1 (2.5-4.0cm) FS (%) 14.7 %LVEF (%)55.0 (>50%) M-Mode DIMENSIONS RVDd2.30 (2.1-3.2cm)Left Atrium (MM)4.07 (2.5-4.0cm) IVSd1.26 (0.7-1.1cm)Aortic Root3.10 (2.2-3.7cm) LVDd6.72 (4.0-5.6cm)Aortic Cusp Exc.2.11 (1.5-2.0cm) PWd0.82 (0.7-1.1cm)FS (%) 24 % LVDs5.12 (2.0-3.8cm)LVEF (%)52 (>50%) Mitral Valve MV E Xfnemihb87.7cm/sMV A Rthfmyoe82.3cm/sE/A ratio0.8 TDI E/Lateral E'0.0E/Medial E'0.0 LEFT VENTRICLE The Left Ventricle is moderately dilated. There is normal left ventricular wall thickness. Left ventricle systolic function is moderately impaired. The Ejection Fraction is 35-40%. There is global hypokinesis of the left ventricle. Transmitral Doppler flow pattern is Grade II-pseudonormal filling dynamics.LV filling pressure is mildly increased No left ventricle thrombus noted on this study. There is no ventricular septal defect visualized. There is no left ventricular aneurysm. There is no mass noted in the left ventricle. RIGHT VENTRICLE The right ventricle is normal size. There is normal right ventricular wall thickness. The right ventricular systolic function is normal. ATRIA The left atrium is mildly dilated. The right atrium size is normal. The interatrial septum is intact with no evidence for an atrial septal defect. AORTIC VALVE The aortic valve is normal in structure and function. No aortic regurgitation is present. There is no aortic valvular stenosis. There is no aortic valvular vegetation. MITRAL VALVE The mitral valve is normal in structure and function. There is no evidence of mitral valve prolapse. There is no mitral valve stenosis. There is no mitral valve regurgitation noted. TRICUSPID VALVE The tricuspid valve is normal in structure and function. There is no tricuspid valve regurgitation noted. There is no tricuspid valve prolapse or vegetation. There is no tricuspid valve stenosis. PULMONIC VALVE The pulmonary valve is normal in structure and function. There is no pulmonic valvular regurgitation. There is no pulmonic valvular stenosis. GREAT VESSELS The aortic root is normal in size. The ascending aorta is normal in size. The pulmonary artery is normal. The IVC is normal in size and collapses >50% with inspiration. PERICARDIAL EFFUSION The pericardium appears normal. There is no pleural effusion. <Conclusion> The Left Ventricle is moderately dilated. Left ventricle systolic function is moderately impaired. The Ejection Fraction is 35-40%. The left ventricular diastolic function is normal. The left atrium is mildly dilated. Transmitral Doppler flow pattern is Grade II-pseudonormal filling dynamics.LV filling pressure is mildly increased
--- NOTE | 2018-01-15 23:01 | CP.PCM.CON ---
History of Present Illness - History of Present Illness History of Present Illness: 57yo F w/ a PMhx of RUBÉN, HTN, DM controlled not on insulin, HLD, super obesity, who is coming to the hospital for progressive shortness of breath, leg swelling , decreased exercise tolerance, and chest pain that started today at doctor nish office. She is non compliant with CPAP at night; has had it for a year and has only used it twice. She sleeps with 1-2 pillows, rolled up under her. states that he gets woken up with her breathing and that she will stop breathing in her sleep and often wakes up to catch her breath. 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, walks without assistance but can only walk 1/2 block before getting short of breath, former smoker not smoked for 30 years, social EtOH, no illicit drugs Review of Systems - Review of Systems All systems: reviewed and no additional remarkable complaints except (Shortness of breath and chest pain) Physical Exam - Head Exam Head Exam: ATRAUMATIC, NORMOCEPHALIC - Eye Exam Eye Exam: Normal appearance - ENT Exam ENT Exam: Mucous Membranes Moist - Neck Exam Neck exam: Positive for: Normal Inspection - Respiratory Exam Respiratory Exam: Clear to Auscultation Bilateral - Cardiovascular Exam Cardiovascular Exam: REGULAR RHYTHM - GI/Abdominal Exam GI & Abdominal Exam: Normal Bowel Sounds, Soft - Extremities Exam Extremities exam: Positive for: pedal edema Past Patient History - Past Medical History & Family History Past Medical History?: Yes - Past Social History Smoking Status: Former Smoker - CARDIAC Hx Cardiac Disorders: Yes Hx Hypertension: Yes - PULMONARY Hx Respiratory Disorders: No - NEUROLOGICAL Hx Neurological Disorder: No - HEENT Hx HEENT Problems: Yes Other/Comment: WEARS GLASSES - RENAL Hx Chronic Kidney Disease: No - ENDOCRINE/METABOLIC Hx Endocrine Disorders: Yes Hx Diabetes Mellitus Type 2: Yes - HEMATOLOGICAL/ONCOLOGICAL Hx Blood Disorders: No - INTEGUMENTARY Hx Dermatological Problems: No - MUSCULOSKELETAL/RHEUMATOLOGICAL Hx Musculoskeletal Disorders: Yes Hx Falls: No Hx Osteoarthritis: Yes - GASTROINTESTINAL Hx Gastrointestinal Disorders: No - GENITOURINARY/GYNECOLOGICAL Hx Genitourinary Disorders: No - PSYCHIATRIC Hx Substance Use: No - SURGICAL HISTORY Hx Surgeries: Yes Hx Section: Yes (X1) - ANESTHESIA Hx Anesthesia: Yes Hx Anesthesia Reactions: No Hx Malignant Hyperthermia: No Has any member of the family had a problem w/ anesthesia?: No Meds Allergies/Adverse Reactions: Allergies Allergy/AdvReac Type Severity Reaction Status Date / Time shellfish derived Allergy Severe ANAPHYLAXIS Verified 01/14/18 18:15 - Medications Medications: Current Medications Acetaminophen (Tylenol 325mg Tab) 650 mg PO Q6 PRN PRN Reason: Fever >100.4 F Albuterol/Ipratropium (Duoneb 3 Mg/0.5 Mg (3 Ml) Ud) 3 ml INH RQ6 [facility] Last Admin: 01/15/18 20:51 Dose: 3 ml Aspirin (Aspirin Chewable) 81 mg PO DAILY [facility] Last Admin: 01/15/18 09:06 Dose: 81 mg Dextrose (Glutose 15) 0 gm PO ONCE PRN; Protocol PRN Reason: Hypoglycemia Protocol Dextrose (Dextrose 50% Inj) 0 ml IV STAT PRN; Protocol PRN Reason: Hypoglycemia Protocol Docusate Sodium (Colace) 100 mg PO BID [facility] Last Admin: 01/15/18 17:29 Dose: 100 mg Enalapril Maleate (Vasotec) 5 mg PO BID [facility] Last Admin: 01/15/18 17:27 Dose: 5 mg Enoxaparin Sodium (Lovenox) 40 mg SC DAILY [facility] Last Admin: 01/15/18 09:07 Dose: 40 mg Glimepiride (Amaryl) 4 mg PO BID [facility] Last Admin: 01/15/18 17:27 Dose: 4 mg Glucagon (Glucagen Diagnostic Kit) 0 mg IM STAT PRN; Protocol PRN Reason: Hypoglycemia Protocol Dextrose (Dextrose 5% In Water 1000 Ml) 1,000 mls @ 0 mls/hr IV .Q0M PRN; Protocol; Per Protocol PRN Reason: Hypoglycemia Protocol Insulin Human Regular (Novolin R) 0 unit SC ACHS [facility] PRN Reason: Protocol Last Admin: 01/15/18 21:24 Dose: Not Given Metformin HCl (Glucophage) 1,000 mg PO BID [facility] Ondansetron HCl (Zofran Inj) 4 mg IVP Q6 PRN PRN Reason: Nausea/Vomiting Rosuvastatin Calcium (Crestor) 40 mg PO HS [facility] Last Admin: 01/15/18 21:28 Dose: 40 mg Sitagliptin Phosphate (Januvia) 100 mg PO DAILY [facility] Last Admin: 01/15/18 09:07 Dose: 100 mg Results - Vital Signs Recent Vital Signs: Last Vital Signs Temp 99 F 01/15/18 20:00 Pulse 84 01/15/18 22:00 Resp 17 01/15/18 22:00 BP 178/81 H 01/15/18 17:27 Pulse Ox 98 01/15/18 16:00 - Labs Result Diagrams: 01/15/18 02:57 01/15/18 02:57 Labs: Laboratory Results - last 24 hr 01/14/18 01/15/18 01/15/18 22:58 02:57 02:57 WBC RBC Hgb Hct MCV MCH MCHC RDW Plt Count MPV Neut % (Auto) Lymph % (Auto) [place] % (Auto) Eos % (Auto) Baso % (Auto) Neut # (Auto) Lymph # (Auto) [place] # (Auto) Eos # (Auto) Baso # (Auto) Sodium 142 Potassium 3.9 Chloride 105 Carbon Dioxide 28 Anion Gap 13 BUN 11 Creatinine 0.6 L Est GFR ( Amer) > 60 Est GFR (Non-Af Amer) > 60 POC Glucose (mg/dL) 214 H Random Glucose 178 H Hemoglobin A1c 7.8 H Calcium 8.8 Total Bilirubin 0.7 AST 15 ALT 15 Alkaline Phosphatase 69 Total Creatine Kinase CK-MB (Mass) Troponin I Total Protein 7.1 Albumin 3.5 Globulin 3.6 Albumin/Globulin Ratio 1.0 Triglycerides 82 D Cholesterol 129 LDL Cholesterol Direct 67 HDL Cholesterol 37 Free T4 TSH 3rd Generation 0.97 01/15/18 01/15/18 01/15/18 02:57 02:57 02:57 WBC 7.8 RBC 4.80 Hgb 13.1 Hct 38.7 MCV 80.8 L MCH 27.3 MCHC 33.8 RDW 15.9 H Plt Count 134 MPV 10.7 Neut % (Auto) 63.4 Lymph % (Auto) 22.7 [place] % (Auto) 9.8 Eos % (Auto) 3.0 Baso % (Auto) 1.1 Neut # (Auto) 5.0 Lymph # (Auto) 1.8 [place] # (Auto) 0.8 Eos # (Auto) 0.2 Baso # (Auto) 0.1 Sodium Potassium Chloride Carbon Dioxide Anion Gap BUN Creatinine Est GFR ( Amer) Est GFR (Non-Af Amer) POC Glucose (mg/dL) Random Glucose Hemoglobin A1c Calcium Total Bilirubin AST ALT Alkaline Phosphatase Total Creatine Kinase 37 CK-MB (Mass) 1.36 Troponin I 0.0200 Total Protein Albumin Globulin Albumin/Globulin Ratio Triglycerides Cholesterol LDL Cholesterol Direct HDL Cholesterol Free T4 1.37 TSH 3rd Generation 01/15/18 01/15/18 01/15/18 07:24 08:41 11:46 WBC RBC Hgb Hct MCV MCH MCHC RDW Plt Count MPV Neut % (Auto) Lymph % (Auto) [place] % (Auto) Eos % (Auto) Baso % (Auto) Neut # (Auto) Lymph # (Auto) [place] # (Auto) Eos # (Auto) Baso # (Auto) Sodium Potassium Chloride Carbon Dioxide Anion Gap BUN Creatinine Est GFR ( Amer) Est GFR (Non-Af Amer) POC Glucose (mg/dL) 175 H 171 H Random Glucose Hemoglobin A1c Calcium Total Bilirubin AST ALT Alkaline Phosphatase Total Creatine Kinase 29 L CK-MB (Mass) 1.20 Troponin I 0.0240 Total Protein Albumin Globulin Albumin/Globulin Ratio Triglycerides Cholesterol LDL Cholesterol Direct HDL Cholesterol Free T4 TSH 3rd Generation 01/15/18 01/15/18 16:04 21:05 WBC RBC Hgb Hct MCV MCH MCHC RDW Plt Count MPV Neut % (Auto) Lymph % (Auto) [place] % (Auto) Eos % (Auto) Baso % (Auto) Neut # (Auto) Lymph # (Auto) [place] # (Auto) Eos # (Auto) Baso # (Auto) Sodium Potassium Chloride Carbon Dioxide Anion Gap BUN Creatinine Est GFR ( Amer) Est GFR (Non-Af Amer) POC Glucose (mg/dL) 246 H 194 H Random Glucose Hemoglobin A1c Calcium Total Bilirubin AST ALT Alkaline Phosphatase Total Creatine Kinase CK-MB (Mass) Troponin I Total Protein Albumin Globulin Albumin/Globulin Ratio Triglycerides Cholesterol LDL Cholesterol Direct HDL Cholesterol Free T4 TSH 3rd Generation Assessment & Plan - Assessment and Plan (Free Text) Assessment: 57yo F sent from cardio clinic for evaluation of chest pain and shortness of breath Chest Pain -GLYNN Q6H; initial negative -BNP WNL -Aspirin, Statin ordered -echo ordered, f/u recs -telemetry SOB -likely 2/2 to super obesity -CPAP at night and encouraged -weight loss encouraged -Dr. Neri; pulmonology -f/u b/l lower extremity US Hx of HTn -c/w ramipril -telemetry Hx of DM -c/w home meds, metformin, januvia, glimiperide -hypoglycemia protocol Hx of HLD -Statin high dose 40mg HS Hx of RUBÉN -CPAP encouraged Super Obesity -counseling; diet and exercise encouraged Prophylaxis -GI prophylaxis not indicated -Lovenox 40mg SC
[2018-01-16] MEDS: Albuterol-Ipratrop 3 mg / 0.5 (3 ml) UD INH SCH ×3 (02:03→13:41)
[2018-01-16 06:34] LABS: BASO % 0.6 % (0.0-2.0); EOS # 0.2 K/uL (0.0-0.7); EOS % 2.9 % (0.0-4.0); HEMOGLOBIN 12.7 g/dL (11.0-16.0); LYMPH # 1.3 K/uL (1.0-4.3); MEAN CELL VOLUME 81.8 fL (81.0-99.0); MEAN CORPUSCULAR HEMOGLOBIN 27.2 pg (27.0-31.0); MEAN CORPUSCULAR HGB CONC 33.2 g/dL (33.0-37.0); MONO # 0.7 K/uL (0.0-0.8); NEUT # 4.7 K/uL (1.8-7.0); NEUT % 67.5 % (50.0-75.0); RBC 4.69 Mil/uL (3.80-5.20); RED CELL DISTRIBUTION WIDTH 15.9 % (11.5-14.5); WHITE BLOOD COUNT 6.9 K/uL (4.8-10.8)
[2018-01-16 06:51] LABS: ALB/GLOB RATIO 0.9 (1.0-2.1); ALBUMIN 3.1 g/dL (3.5-5.0); ALT/SGPT 13 U/L (9-52); AST/SGOT 12 U/L (14-36); BLOOD UREA NITROGEN 11 mg/dL (7-17); CALCIUM 8.5 mg/dl (8.6-10.4); GFR AFRICAN-AMERICAN > 60; GFR NON-AFRICAN AMERICAN > 60
[2018-01-16] MEDS: (Novolin R) Insulin Human Regular 100 units/ml vial SC SCH ×2 (07:34→11:43)
--- NOTE | 2018-01-16 07:40 | CP.PCM.PN ---
<Prakash Martinez - Last Filed: 01/16/18 13:14> Subjective - Date & Time of Evaluation Date of Evaluation: 01/16/18 Time of Evaluation: 07:29 - Subjective Subjective: PGY2 note for Dr. Pendleton's Cardio service: Pt seen and examined at bedside. No acute events overnight. Patient found sitting comfortably at bedside. Denies chest pain, palpitations, and admits improved SOB since admission. Asking questions about preparation for Bariatric surgery. Objective - Vital Signs/Intake and Output Vital Signs (last 24 hours): Temp Pulse Resp BP Pulse Ox 98.5 F 80 17 122/74 98 01/16/18 04:00 01/16/18 06:00 01/16/18 06:00 01/16/18 00:44 01/15/18 16:00 Intake and Output: 01/16/18 01/16/18 06:59 18:59 Intake Total 400 Output Total 500 Balance -100 - Medications Medications: Current Medications Acetaminophen (Tylenol 325mg Tab) 650 mg PO Q6 PRN PRN Reason: Fever >100.4 F Albuterol/Ipratropium (Duoneb 3 Mg/0.5 Mg (3 Ml) Ud) 3 ml INH RQ6 [facility] Last Admin: 01/16/18 02:03 Dose: Not Given Aspirin (Aspirin Chewable) 81 mg PO DAILY [facility] Last Admin: 01/15/18 09:06 Dose: 81 mg Dextrose (Glutose 15) 0 gm PO ONCE PRN; Protocol PRN Reason: Hypoglycemia Protocol Dextrose (Dextrose 50% Inj) 0 ml IV STAT PRN; Protocol PRN Reason: Hypoglycemia Protocol Docusate Sodium (Colace) 100 mg PO BID [facility] Last Admin: 01/15/18 17:29 Dose: 100 mg Enalapril Maleate (Vasotec) 5 mg PO BID [facility] Last Admin: 01/15/18 17:27 Dose: 5 mg Enoxaparin Sodium (Lovenox) 40 mg SC DAILY [facility] Last Admin: 01/15/18 09:07 Dose: 40 mg Glimepiride (Amaryl) 4 mg PO BID [facility] Last Admin: 01/15/18 17:27 Dose: 4 mg Glucagon (Glucagen Diagnostic Kit) 0 mg IM STAT PRN; Protocol PRN Reason: Hypoglycemia Protocol Dextrose (Dextrose 5% In Water 1000 Ml) 1,000 mls @ 0 mls/hr IV .Q0M PRN; Protocol; Per Protocol PRN Reason: Hypoglycemia Protocol Insulin Human Regular (Novolin R) 0 unit SC ACHS [facility] PRN Reason: Protocol Last Admin: 01/15/18 21:24 Dose: Not Given Metformin HCl (Glucophage) 1,000 mg PO BID [facility] Ondansetron HCl (Zofran Inj) 4 mg IVP Q6 PRN PRN Reason: Nausea/Vomiting Rosuvastatin Calcium (Crestor) 40 mg PO HS [facility] Last Admin: 01/15/18 21:28 Dose: 40 mg Sitagliptin Phosphate (Januvia) 100 mg PO DAILY [facility] Last Admin: 01/15/18 09:07 Dose: 100 mg - Labs Labs: 01/16/18 06:27 01/16/18 06:28 - Additional Findings Additional findings: - Constitutional Appears: Non-toxic, No Acute Distress, Other (Obese body habitus) - Found sitting comfortably at bedside - Head Exam Head Exam: ATRAUMATIC, NORMAL INSPECTION, NORMOCEPHALIC - Eye Exam Eye Exam: EOMI, Normal appearance, PERRL - ENT Exam ENT Exam: Mucous Membranes Moist - Neck Exam Neck Exam: absent: Tenderness - Respiratory Exam Respiratory Exam: NORMAL BREATHING PATTERN. absent: Accessory Muscle Use, Rales, Respiratory Distress - Cardiovascular Exam Cardiovascular Exam: RRR, +S1, +S2. absent: Bradycardia, Tachycardia - GI/Abdominal Exam GI & Abdominal Exam: Soft, Normal Bowel Sounds. absent: Tenderness Additional comments: obese abdomen - Extremities Exam Extremities Exam: Normal Capillary Refill. absent: Calf Tenderness, Pedal Edema - Back Exam Back Exam: absent: rash noted - Neurological Exam Neurological Exam: Alert, Awake, Oriented x3 - Psychiatric Exam Psychiatric exam: Normal Affect, Normal Mood - Skin Skin Exam: Dry, Intact, Normal Color, Warm Assessment and Plan - Assessment and Plan (Free Text) Plan: Chest Pain, R/O ACS GLYNN negative x 3 BNP 235 (WNL) EKG (01/14/18): NSR, 87 bpm, No acute ST/T wave changes ECHO (01/15/18): LV mod dilated, EF 35-40%, LA mildly dilated, Grade II- pseudonormal filling dynamics. - Dr. Pendleton after reading ECHO believes EF more accurately assessed at ~45% Lipid panel: LDL 67, HDL 37, T Chol 129, TG 82 Aspirin 81mg PO Daily Crestor 40mg HS Shortness of Breath Etiology: Believed to be pulm etiology vs 2/2 obesity BNP WNL, D-dimer 348 (slightly above normal limit) CTA Chest: poor study for PE due to inadequate contrast in the pulmonary vasculature VQ scan: low probability VQ scan CHF, diastolic dysfunction ECHO (01/15/18): LV mod dilated, EF ~45%, LA mildly dilated, Grade II- pseudonormal filling dynamics. Enalapril 5mg PO BID Non-ischemic cardiomyopathy ECHO (01/15/18): LV mod dilated, LA mildly dilated, EF ~45%, Grade II- pseudonormal filling dynamics. Hx of HTN Well controlled Enalapril 5mg PO BID Hx of DM A1C : 7.8 -c/w home meds, metformin, januvia, glimiperide Enalapril 5mg PO BID Hx of HLD Lipid panel: LDL 67, HDL 37, T Chol 129, TG 82 Crestor 40mg HS Hx of RUBÉN Dr. Neri; pulmonology weight loss encouraged CPAP settings adjusted during this admisison Disposition: Pt stable for discharge from cardio perspective. Pt asked to follow up with Dr Pendleton in 30 days time. At that time can assess for clearance prior to bariatric surgery. Prakash Martinez PGY2 D/w Dr. Pendleton <Kobi Pendleton - Last Filed: 01/17/18 06:25> Objective - Vital Signs/Intake and Output Vital Signs (last 24 hours): Temp Pulse Resp BP Pulse Ox 98.3 F 87 19 125/77 96 01/16/18 12:00 01/16/18 12:00 01/16/18 12:00 01/16/18 11:13 01/16/18 12:00 Intake and Output: 01/16/18 01/17/18 18:59 06:59 Intake Total 650 Balance 650 - Labs Labs: 01/16/18 06:27 01/16/18 06:28 Assessment and Plan - Assessment and Plan (Free Text) Plan: Patient seen and evaluated personally by me Plan of care d/w the regional medical director and as documented
[2018-01-16] MEDS: Enoxaparin 40 mg Syringe SC SCH (09:30)
--- NOTE | 2018-01-16 09:39 | VASCLAB ---
PROCEDURE: Lower Extremity Venous Duplex Exam. HISTORY: leg swelling PRIORS: None. TECHNIQUE: Bilateral common femoral, femoral, popliteal and posterior tibial, peroneal and great saphenous veins were evaluated. Flow was assessed with color Doppler, compressibility, assessment of phasic flow and augmentation response. Report prepared by CECY Mccann, RVT FINDINGS: RIGHT: 1. Common Femoral Vein: 1.1. Compressibility - Fully compressible: Thrombus - None : Flow - Phasic: Augmentation -Normal: Reflux - None. 2. Femoral Vein: 2.1. Compressibility - Fully compressible: Thrombus - None : Flow - Phasic: Augmentation -Normal: Reflux - None. 3. Popliteal Vein: 3.1. Compressibility - Fully compressible: Thrombus - None : Flow - Phasic: Augmentation -Normal: Reflux - None. 4. Posterior Tibial Vein: 4.1. Compressibility - Fully compressible: Thrombus - None: Flow - Phasic: Augmentation -Normal: Reflux - None. 5. Peroneal Vein: 5.1. Compressibility - Fully compressible: Thrombus - None: Flow - Phasic: Augmentation -Normal: Reflux - None. 6. Great Saphenous Vein: 6.1. Compressibility - Fully compressible: Thrombus - None: Flow - Phasic: Augmentation - Normal: Reflux - None. LEFT: 1. Common Femoral Vein: 1.1. Compressibility - Fully compressible: Thrombus - None: Flow - Phasic: Augmentation -Normal: Reflux - None. 2. Femoral Vein: 2.1. Compressibility - Fully compressible: Thrombus - None: Flow - Phasic: Augmentation -Normal: Reflux - None. 3. Popliteal Vein: 3.1. Compressibility - Fully compressible: Thrombus - None : Flow - Phasic: Augmentation -Normal: Reflux - None. 4. Posterior Tibial Vein: 4.1. Compressibility - Fully compressible: Thrombus - None: Flow - Phasic: Augmentation -Normal: Reflux - None. 5. Peroneal Vein: 5.1. Compressibility - Fully compressible: Thrombus - None: Flow - Phasic: Augmentation -Normal: Reflux - None. 6. Great Saphenous Vein: 6.1. Compressibility - Fully compressible: Thrombus - None: Flow - Phasic: Augmentation - Normal: Reflux - None. OTHER FINDINGS: Right: None significant. Left: None significant. IMPRESSION: Right: No evidence of deep or superficial vein thrombosis of the right lower extremity. Normal valve function noted of the right side. Left: No evidence of deep or superficial vein thrombosis of the left lower extremity. Normal valve function noted of the left side.
--- NOTE | 2018-01-16 11:06 | CP.PCM.PN ---
Subjective - Date & Time of Evaluation Date of Evaluation: 01/16/18 Time of Evaluation: 10:45 - Subjective Subjective: Patient was seen and examined at 10:45 AM 01/16/18 ICU Bed #12 Upon FULL ROS (+) Rhinorrhea clear and teary eyes started today NO dysphagia/odynopahgia NO soreness in throat NO cough NO sinus/nasal congestion NO fever/chills NO muscle aches/pains NO chest pain/palpations NO SOB NO n/v/d/c: tolerating diet and moving bowels normally NO burning pain with urination NO FLEMING NO lightheadedness/dizziness NO paresthesias NO new changes in vision NO new changes in hearing Exam: General: AAOX3, NAD HEENT: NCA, EOMI, PERRLA, NO cervical/supraclavicular/submandibular lymphadenopathy, NO pharyngeal erythema/exudate, (+) Nasal Turbinates are edematous and erythematous with Left > Right, Oral Mucosa is moist Cardio: NS1 and NS2, NO M/R/G Resp: CTA B/L, NO R/R/W, Decreased breath sounds bilateral basilar area GI: BSx4, Soft, NT, Could NOT palpate liver and spleen due to central obesity, NO guarding/rebound tenderness Ext: Pulses are strong and equal, Capillary Refill is 2 seconds, NO edema Neuro: CN II through XII are grossly intact Assessment and Plan - Assessment and Plan (Free Text) Plan: Shortness of Breath * D dimer slightly elevated at 348 * Pulmonology consult (Dr. Neri) - help appreciated * CTA Chest: poor study for PE due to inadequate contrast in the pulmonary vasculature * VQ scan: low probability VQ scan * Venous dopplers of the lower extremities are negative for DVT Chest Pain - resolved * Cardiology consult (Dr. Pendleton) - help appreciated * Monitor on telemetry * GLYNN negative x3 * BNP WNL * ECHO (01/15/18): LV mod dilated, EF 35-40%, LA mildly dilated, Grade II- pseudonormal filling dynamics. * Lipid Panel: Trig 82, Chol 129, LDL 67, HDL 37 * TSH/Free T4 WNL * ASA 81 mg * Crestor 40 mg Hx of HTn * Continue ramipril Hx of DM * Continue home meds januvia and glimiperide and restart metformin on 01/17/18 ( was held due to contrast given for CT Angio Chest) * Hypoglycemia protocol * Accuchecks ACHS * HbA1c 7.8 Hx of HLD * Crestor 40mg HS Hx of RUBÉN * CPAP encouraged * Patient did really well on 01/15/18 when CPAP setting was placed on 10 mm H20 with FiO2 30% and these are the settings which will be provided to patient so that she may call her CPAP company to come to her house to adjust settings Morbid Obesity * Patient stated that she is scheduled to see an unspecified Bariatric Surgeon in February 2018. She has to follow up with Psychiatry (will provide her with Dr. Mejia information as per her request) and Clinical Deicer Tester (she will use the one recommended by the Bariatric Surgeon). Prophylaxis * GI prophylaxis not indicated * Lovenox 40mg SC Patient is stable for discharge to home. She stated that she had enough of her home medications. The following instructions were explained to patient and copy of these instructions will be provided to her upon discharge: 1). Please schedule follow up with your primary care physician Dr. Avelino Parr in the next 7 to 10 days to help you coordinate your care especially your plans for Bariatric Surgery. Please bring your discharge paperwork with you to your appointment with Dr. Avelino Parr for her review. 2). You requested a psychiatrist recommendation as part of your clearance for Bariatric Surgery. It is recommended that you schedule evaluation by Dr. Alexandre Mejia by calling his office [phone]. His office is located at [address] [place] [address] [address] in [place], [place]. 3). We recommend that you follow up with Installations Inspector Dr. Ke Neri for management of your Sleep Apnea by calling his office [phone]. His office is also located at [address] [place] [address] [address] in [place], [place]. 4). Your Director Marketing Communications Dr. Pendleton would like for you to follow up with him in 30 days. You will need Cardiac Clearance before your Bariatric Surgery. 5). The CPAP settings that you were able to tolerate are 10 mm H2O with FiO2 of 30%. Please contact the company that provided you with the CPAP machine at home so that they can come to you and adjust the settings. This should be used at night to help you sleep. 6). Your exam on 01/16/18 revealed that you may have the beginnings of seasonal allergies. Therefore please have the following prescriptions filled at your pharmacy on the way home from the hospital: Anita 180 mg, 1 tablet by mouth 1x/day (breakfast), Dispense #30, NO refills Flonase 50 mcg, 2 sprays each nostril 1x/day (breakfast), Dispense #1, NO refills 7). You stated that you had enough of all of your home medications. Please continue them as instructed by the prescribing physicians. You may restart your Metformin on 01/17/18. 8). It was a pleasure helping you. I believe that you the courage to go through with the Bariatric Surgery and that you will be there for your family. Please take care and be well. Minor Parr D.O. Objective - Vital Signs/Intake and Output Vital Signs (last 24 hours): Temp Pulse Resp BP Pulse Ox 97.7 F 93 H 22 135/70 97 01/16/18 08:00 01/16/18 08:15 01/16/18 08:15 01/16/18 09:30 01/16/18 08:00 Intake and Output: 01/16/18 01/16/18 06:59 18:59 Intake Total 400 300 Output Total 500 Balance -100 300 - Medications Medications: Current Medications Acetaminophen (Tylenol 325mg Tab) 650 mg PO Q6 PRN PRN Reason: Fever >100.4 F Albuterol/Ipratropium (Duoneb 3 Mg/0.5 Mg (3 Ml) Ud) 3 ml INH RQ6 [facility] Last Admin: 01/16/18 07:49 Dose: 3 ml Aspirin (Aspirin Chewable) 81 mg PO DAILY [facility] Last Admin: 01/16/18 09:30 Dose: 81 mg Dextrose (Glutose 15) 0 gm PO ONCE PRN; Protocol PRN Reason: Hypoglycemia Protocol Dextrose (Dextrose 50% Inj) 0 ml IV STAT PRN; Protocol PRN Reason: Hypoglycemia Protocol Docusate Sodium (Colace) 100 mg PO BID [facility] Last Admin: 01/16/18 09:30 Dose: 100 mg Enalapril Maleate (Vasotec) 5 mg PO BID [facility] Last Admin: 01/16/18 09:30 Dose: 5 mg Enoxaparin Sodium (Lovenox) 40 mg SC DAILY [facility] Last Admin: 01/16/18 09:30 Dose: 40 mg Fluticasone Propionate (Flonase) 0 spr FRANK[place]N DAILY [facility] Glimepiride (Amaryl) 4 mg PO BID [facility] Last Admin: 01/16/18 09:30 Dose: 4 mg Glucagon (Glucagen Diagnostic Kit) 0 mg IM STAT PRN; Protocol PRN Reason: Hypoglycemia Protocol Dextrose (Dextrose 5% In Water 1000 Ml) 1,000 mls @ 0 mls/hr IV .Q0M PRN; Protocol; Per Protocol PRN Reason: Hypoglycemia Protocol Insulin Human Regular (Novolin R) 0 unit SC ACHS [facility] PRN Reason: Protocol Last Admin: 01/16/18 07:34 Dose: 2 unit Metformin HCl (Glucophage) 1,000 mg PO BID [facility] Ondansetron HCl (Zofran Inj) 4 mg IVP Q6 PRN PRN Reason: Nausea/Vomiting Rosuvastatin Calcium (Crestor) 40 mg PO HS [facility] Last Admin: 01/15/18 21:28 Dose: 40 mg Sitagliptin Phosphate (Januvia) 100 mg PO DAILY [facility] Last Admin: 01/16/18 09:30 Dose: 100 mg - Labs Labs: 01/16/18 06:27 01/16/18 06:28
[2018-01-16] MEDS ORDERED: Fluticasone Nasal 50 mcg/Spray NAS SCH (11:15)
[2018-01-16 12:16] VITALS: BP 125/77; PULSE 87; RESP 19; TEMP 98.3; O2SAT 96
--- NOTE | 2018-01-16 16:11 | CP.PCM.DIS ---
<Jaymie George - Last Filed: 01/16/18 16:05> Provider - Provider Date of Admission: 01/14/18 21:06 Attending physician: Minor Parr MD Time Spent in preparation of Discharge (in minutes): 35 Diagnosis - Discharge Diagnosis (1) Obese Status: Acute (2) Shortness of breath Status: Acute Hospital Course - Lab Results Lab Results: Micro Results 01/15/18 06:15 Nose MRSA Culture (Admit) - Final MRSA NOT DETECTED Most Recent Lab Values WBC 6.9 K/uL (4.8-10.8) 01/16/18 06:27 RBC 4.69 Mil/uL (3.80-5.20) 01/16/18 06:27 Hgb 12.7 g/dL (11.0-16.0) 01/16/18 06:27 Hct 38.3 % (34.0-47.0) 01/16/18 06:27 MCV 81.8 fL (81.0-99.0) 01/16/18 06:27 MCH 27.2 pg (27.0-31.0) 01/16/18 06:27 MCHC 33.2 g/dL (33.0-37.0) 01/16/18 06:27 RDW 15.9 % (11.5-14.5) H 01/16/18 06:27 Plt Count 121 K/uL (130-400) L 01/16/18 06:27 MPV 11.0 fL (7.2-11.7) 01/16/18 06:27 Neut % (Auto) 67.5 % (50.0-75.0) 01/16/18 06:27 Lymph % (Auto) 19.0 % (20.0-40.0) L 01/16/18 06:27 Carbon % (Auto) 10.0 % (0.0-10.0) 01/16/18 06:27 Eos % (Auto) 2.9 % (0.0-4.0) 01/16/18 06:27 Baso % (Auto) 0.6 % (0.0-2.0) 01/16/18 06:27 Neut # (Auto) 4.7 K/uL (1.8-7.0) 01/16/18 06:27 Lymph # (Auto) 1.3 K/uL (1.0-4.3) 01/16/18 06:27 Carbon # (Auto) 0.7 K/uL (0.0-0.8) 01/16/18 06:27 Eos # (Auto) 0.2 K/uL (0.0-0.7) 01/16/18 06:27 Baso # (Auto) 0.0 K/uL (0.0-0.2) 01/16/18 06:27 Differential Comment 01/16/18 06:27 D-Dimer, Quantitative 348 ng/mlDDU (0-243) H 01/14/18 22:30 Sodium 143 mmol/L (132-148) 01/16/18 06:28 Potassium 4.1 mmol/L (3.6-5.2) 01/16/18 06:28 Chloride 106 mmol/L (98-107) 01/16/18 06:28 Carbon Dioxide 30 mmol/L (22-30) 01/16/18 06:28 Anion Gap 12 (10-20) 01/16/18 06:28 BUN 11 mg/dL (7-17) 01/16/18 06:28 Creatinine 0.6 mg/dL (0.7-1.2) L 01/16/18 06:28 Est GFR ( Amer) > 60 01/16/18 06:28 Est GFR (Non-Af Amer) > 60 01/16/18 06:28 POC Glucose (mg/dL) 215 mg/dL (65-110) H 01/16/18 11:27 Random Glucose 182 mg/dL (65-105) H 01/16/18 06:28 Hemoglobin A1c 7.8 % (4.2-6.5) H 01/15/18 02:57 Calcium 8.5 mg/dl (8.6-10.4) L 01/16/18 06:28 Total Bilirubin 0.6 mg/dL (0.2-1.3) 01/16/18 06:28 AST 12 U/L (14-36) L 01/16/18 06:28 ALT 13 U/L (9-52) 01/16/18 06:28 Alkaline Phosphatase 66 U/L (38-126) 01/16/18 06:28 Total Creatine Kinase 29 U/L (30-135) L 01/15/18 08:41 CK-MB (Mass) 1.20 ng/mL (0.0-3.38) 01/15/18 08:41 Troponin I 0.0240 ng/mL (0.00-0.120) 01/15/18 08:41 NT-Pro-B Natriuret Pep 235 pg/mL (0-900) 01/14/18 19:33 Total Protein 6.7 g/dL (6.3-8.3) 01/16/18 06:28 Albumin 3.1 g/dL (3.5-5.0) L 01/16/18 06:28 Globulin 3.6 gm/dL (2.2-3.9) 01/16/18 06:28 Albumin/Globulin Ratio 0.9 (1.0-2.1) L 01/16/18 06:28 Triglycerides 82 mg/dL (0-149) D 01/15/18 02:57 Cholesterol 129 mg/dL (0-199) 01/15/18 02:57 LDL Cholesterol Direct 67 mg/dL (0-129) 01/15/18 02:57 HDL Cholesterol 37 mg/dL (30-70) 01/15/18 02:57 Free T4 1.37 ng/dL (0.78-2.19) 01/15/18 02:57 TSH 3rd Generation 0.97 mIU/L (0.46-4.68) 01/15/18 02:57 - Hospital Course Hospital Course: Upon admission: This patient is a 57yo F w/ a PMhx of RUBÉN, HTN, DM controlled not on insulin, HLD, super obesity, who is coming to the hospital for progressive shortness of breath, leg swelling, decreased exercise tolerance, and chest pain that started today at doctor nish office. She states the chest pain is intermittent, has left already, and was associated with shortness of breath which made her nervous. She is non compliant with CPAP at night; has had it for a year and has only used it twice. She is a former cigarette smoker, and has stopped for many years now. She denies illicit drug use. She sleeps with 1-2 pillows, rolled up under her. states that he gets woken up with her breathing and that she will stop breathing in her sleep and often wakes up to catch her breath. As per Dr. Pendleton; patient has recent cath which is normal without blockages; she has mitral regurgitation which could be a component of her SOB. He also wanted vascular studies of b/l lower extremities, as well as D-Dimer and if D Dimer is positive to get CTA chest. Hospital course: Patient was admitted to r/o ACS and PE. Patient had CTA chest which was inadequate due to body habitus so VQ scan was done and showed low probability of PE. ROMIs were negative x3. CPAP settings were adjusted and patient started to feel better during the day today. A copy of the most recent assessment and plan is attached for a brief summary of what was done as well as instructions upon discharge per Dr. Parr: Shortness of Breath * D dimer slightly elevated at 348 * Pulmonology consult (Dr. Neri) - help appreciated * CTA Chest: poor study for PE due to inadequate contrast in the pulmonary vasculature * VQ scan: low probability VQ scan * Venous dopplers of the lower extremities are negative for DVT Chest Pain - resolved * Cardiology consult (Dr. Pendleton) - help appreciated * Monitor on telemetry * GLYNN negative x3 * BNP WNL * ECHO (01/15/18): LV mod dilated, EF 35-40%, LA mildly dilated, Grade II- pseudonormal filling dynamics. * Lipid Panel: Trig 82, Chol 129, LDL 67, HDL 37 * TSH/Free T4 WNL * ASA 81 mg * Crestor 40 mg Hx of HTn * Continue ramipril Hx of DM * Continue home meds januvia and glimiperide and restart metformin on 01/17/18 ( was held due to contrast given for CT Angio Chest) * Hypoglycemia protocol * Accuchecks ACHS * HbA1c 7.8 Hx of HLD * Crestor 40mg HS Hx of RUBÉN * CPAP encouraged * Patient did really well on 01/15/18 when CPAP setting was placed on 10 mm H20 with FiO2 30% and these are the settings which will be provided to patient so that she may call her CPAP company to come to her house to adjust settings Morbid Obesity * Patient stated that she is scheduled to see an unspecified Bariatric Surgeon in February 2018. She has to follow up with Psychiatry (will provide her with Dr. Mejia information as per her request) and Clinical [employer] (she will use the one recommended by the Bariatric Surgeon). Prophylaxis * GI prophylaxis not indicated * Lovenox 40mg SC Patient is stable for discharge to home. She stated that she had enough of her home medications. The following instructions were explained to patient and copy of these instructions will be provided to her upon discharge: 1). Please schedule follow up with your primary care physician Dr. Avelino Parr in the next 7 to 10 days to help you coordinate your care especially your plans for Bariatric Surgery. Please bring your discharge paperwork with you to your appointment with Dr. Avelino Parr for her review. 2). You requested a psychiatrist recommendation as part of your clearance for Bariatric Surgery. It is recommended that you schedule evaluation by Dr. Alexandre Mejia by calling his office [phone]. His office is located at [address] [place] [address] [address] in [place], [place]. 3). We recommend that you follow up with Truck Loader Dr. Ke Neri for management of your Sleep Apnea by calling his office [phone]. His office is also located at [address] [facility] [address] in [place], [place]. 4). Your Supervisor Bindery Dr. Pendleton would like for you to follow up with him in 30 days. You will need Cardiac Clearance before your Bariatric Surgery. 5). The CPAP settings that you were able to tolerate are 10 mm H2O with FiO2 of 30%. Please contact the company that provided you with the CPAP machine at home so that they can come to you and adjust the settings. This should be used at night to help you sleep. 6). Your exam on 01/16/18 revealed that you may have the beginnings of seasonal allergies. Therefore please have the following prescriptions filled at your pharmacy on the way home from the hospital: Anita 180 mg, 1 tablet by mouth 1x/day (breakfast), Dispense #30, NO refills Flonase 50 mcg, 2 sprays each nostril 1x/day (breakfast), Dispense #1, NO refills 7). You stated that you had enough of all of your home medications. Please continue them as instructed by the prescribing physicians. You may restart your Metformin on 01/17/18. 8). It was a pleasure helping you. I believe that you the courage to go through with the Bariatric Surgery and that you will be there for your family. Please take care and be well. *Please note that this is a summary of events. For more details please see complete medical record. Discharge Exam - Head Exam Head Exam: ATRAUMATIC, NORMAL INSPECTION, NORMOCEPHALIC - Eye Exam Eye Exam: EOMI, Normal appearance, PERRL - ENT Exam ENT Exam: Mucous Membranes Moist - Neck Exam Neck exam: Normal Inspection - Respiratory Exam Respiratory Exam: Clear to PA & Lateral, NORMAL BREATHING PATTERN, UNREMARKABLE - Cardiovascular Exam Cardiovascular Exam: RRR, +S1, +S2 - GI/Abdominal Exam GI & Abdominal Exam: Normal Bowel Sounds, Unremarkable - Extremities Exam Extremities exam: normal inspection - Neurological Exam Neurological exam: Alert, Oriented x3 - Psychiatric Exam Psychiatric exam: Normal Affect, Normal Mood - Skin Skin Exam: Dry, Intact, Normal Color, Warm Discharge Plan - Discharge Medications Prescriptions: Atorvastatin [Lipitor] 10 mg PO DAILY #30 tab Fexofenadine HCl [AnitaNf] 180 mg PO DAILY #30 Fluticasone Propionate [Flonase] 2 spr FRANKLYN DAILY #1 bottle - Follow Up Plan Condition: GOOD Disposition: HOME/ ROUTINE Instructions: High Blood Pressure (DC), Obstructive Sleep Apnea, Adult (DC), Shortness of Breath (Dyspnea) (DC), Sleep Apnea (DC), Atorvastatin, Fexofenadine , How to Use a CPAP or BPAP Machine, Fluticasone (Nasal) Additional Instructions: The following instructions were explained to patient and copy of these instructions will be provided to her upon discharge: 1). Please schedule follow up with your primary care physician Dr. Avelino Parr in the next 7 to 10 days to help you coordinate your care especially your plans for Bariatric Surgery. Please bring your discharge paperwork with you to your appointment with Dr. Avelino Parr for her review. 2). You requested a psychiatrist recommendation as part of your clearance for Bariatric Surgery. It is recommended that you schedule evaluation by Dr. Alexandre Mejia by calling his office [phone]. His office is located at [address] [facility] [address] in [place], [place]. 3). We recommend that you follow up with Truck Loader Dr. Ke Neri for management of your Sleep Apnea by calling his office [phone]. His office is also located at [address] [facility] [address] in [place], [place]. 4). Your Supervisor Bindery Dr. Pendleton would like for you to follow up with him in 30 days. You will need Cardiac Clearance before your Bariatric Surgery. 5). The CPAP settings that you were able to tolerate are 10 mm H2O with FiO2 of 30%. Please contact the company that provided you with the CPAP machine at home so that they can come to you and adjust the settings. This should be used at night to help you sleep. 6). Your exam on 01/16/18 revealed that you may have the beginnings of seasonal allergies. You also need to be on a cholesterol medication to help protect your cardiovascular system. Therefore please have the following prescriptions filled at your pharmacy on the way home from the hospital: Anita 180 mg, 1 tablet by mouth 1x/day (breakfast), Dispense #30, NO refills Flonase 50 mcg, 2 sprays each nostril 1x/day (breakfast), Dispense #1, NO refills Atorvastatin 10 mg, 1 tablet by mouth 1x/day (dinner), Dispense #30, NO refills 7). You stated that you had enough of all of your home medications. Please continue them as instructed by the prescribing physicians. You may restart your Metformin on 01/17/18. 8). It was a pleasure helping you. I believe that you the courage to go through with the Bariatric Surgery and that you will be there for your family. Please take care and be well. <Minor Parr - Last Filed: 01/16/18 18:47> Provider - Provider Date of Admission: 01/14/18 21:06 Attending physician: Minor Parr MD Time Spent in preparation of Discharge (in minutes): 40 Hospital Course - Lab Results Lab Results: Micro Results 01/15/18 06:15 Nose MRSA Culture (Admit) - Final MRSA NOT DETECTED Most Recent Lab Values WBC 6.9 K/uL (4.8-10.8) 01/16/18 06:27 RBC 4.69 Mil/uL (3.80-5.20) 01/16/18 06:27 Hgb 12.7 g/dL (11.0-16.0) 01/16/18 06:27 Hct 38.3 % (34.0-47.0) 01/16/18 06:27 MCV 81.8 fL (81.0-99.0) 01/16/18 06:27 MCH 27.2 pg (27.0-31.0) 01/16/18 06: MCHC 33.2 g/dL (33.0-37.0) 01/16/18 06: RDW 15.9 % (11.5-14.5) H 01/16/18 06: Plt Count 121 K/uL (130-400) L 01/16/18: MPV 11.0 fL (7.2-11.7) 01/16/18 06: Neut % (Auto) 67.5 % (50.0-75.0) 01/16/18 06: Lymph % (Auto) 19.0 % (20.0-40.0) L 01/16/18: Carbon % (Auto) 10.0 % (0.0-10.0) 01/16/18: Eos % (Auto) 2.9 % (0.0-4.0) 01/16/18: Baso % (Auto) 0.6 % (0.0-2.0) 01/16/18 06: Neut # (Auto) 4.7 K/uL (1.8-7.0) 01/16/18 06: Lymph # (Auto) 1.3 K/uL (1.0-4.3) 01/16/18 06: Carbon # (Auto) 0.7 K/uL (0.0-0.8) 01/16/18 06: Eos # (Auto) 0.2 K/uL (0.0-0.7) 01/16/18: Baso # (Auto) 0.0 K/uL (0.0-0.2) 01/16/18 06:27 Differential Comment 01/16/18 06:27 D-Dimer, Quantitative 348 ng/mlDDU (0-243) H 01/14/18 22:30 Sodium 143 mmol/L (132-148) 01/16/18 06:28 Potassium 4.1 mmol/L (3.6-5.2) 01/16/18 06: Chloride 106 mmol/L (98-107) 01/16/18 06: Carbon Dioxide 30 mmol/L (22-30) 01/16/18 06:28 Anion Gap 12 (10-20) 01/16/18 06:28 BUN 11 mg/dL (7-17) 01/16/18 06:28 Creatinine 0.6 mg/dL (0.7-1.2) L 01/16/18 06:28 Est GFR ( Amer) > 60 01/16/18 06:28 Est GFR (Non-Af Amer) > 60 01/16/18 06:28 POC Glucose (mg/dL) 215 mg/dL (65-110) H 01/16/18 11:27 Random Glucose 182 mg/dL (65-105) H 01/16/18 06:28 Hemoglobin A1c 7.8 % (4.2-6.5) H 01/15/18 02:57 Calcium 8.5 mg/dl (8.6-10.4) L 01/16/18 06:28 Total Bilirubin 0.6 mg/dL (0.2-1.3) 01/16/18 06:28 AST 12 U/L (14-36) L 01/16/18 06:28 ALT 13 U/L (9-52) 01/16/18 06:28 Alkaline Phosphatase 66 U/L (38-126) 01/16/18 06:28 Total Creatine Kinase 29 U/L (30-135) L 01/15/18 08:41 CK-MB (Mass) 1.20 ng/mL (0.0-3.38) 01/15/18 08:41 Troponin I 0.0240 ng/mL (0.00-0.120) 01/15/18 08:41 NT-Pro-B Natriuret Pep 235 pg/mL (0-900) 01/14/18 19:33 Total Protein 6.7 g/dL (6.3-8.3) 01/16/18 06:28 Albumin 3.1 g/dL (3.5-5.0) L 01/16/18 06:28 Globulin 3.6 gm/dL (2.2-3.9) 01/16/18 06:28 Albumin/Globulin Ratio 0.9 (1.0-2.1) L 01/16/18 06:28 Triglycerides 82 mg/dL (0-149) D 01/15/18 02:57 Cholesterol 129 mg/dL (0-199) 05/03/18 02:57 LDL Cholesterol Direct 67 mg/dL (0-129) 01/15/18 02:57 HDL Cholesterol 37 mg/dL (30-70) 01/15/18 02:57 Free T4 1.37 ng/dL (0.78-2.19) 01/15/18 02:57 TSH 3rd Generation 0.97 mIU/L (0.46-4.68) 01/15/18 02:57 Attending/Attestation - Attestation I have personally seen and examined this patient.: Yes I have fully participated in the care of the patient.: Yes I have reviewed all pertinent clinical information, including history, physical exam and plan: Yes Notes (Text): 01/16/18 18:47 Please also see my progress note 01/16/18. Minor Parr D.O.
== END 2018-01-16 15:00 | disposition home or self-care (01) | DRG 641 ==
LOC: C.ER 18:00 → C.9E 21:06 → C.9I 01-15 01:06 → C.9E 01-15 01:09 → C.9I 01-15 03:14
PROVIDERS: ADMIT Family Medicine; ATTEND Family Medicine
PROC: 5A09357 Assistance with Respiratory Ventilation, Less than 24 Consecutive Hours, Continuous Positive Airway Pressure (ICD-10-PCS; principal; 2018-01-15)
DX: E66.01 Morbid (severe) obesity due to excess calories (principal); I50.30 Unspecified diastolic (congestive) heart failure; I42.9 Cardiomyopathy, unspecified; E11.9 Type 2 diabetes mellitus without complications; I11.0 Hypertensive heart disease with heart failure; I34.0 Nonrheumatic mitral (valve) insufficiency; Z68.43 Body mass index [BMI] 50.0-59.9, adult; G47.33 Obstructive sleep apnea (adult) (pediatric); E78.5 Hyperlipidemia, unspecified; Z79.82 Long term (current) use of aspirin; Z87.891 Personal history of nicotine dependence; Z91.19 Patient's noncompliance with other medical treatment and regimen